=== PATIENT | male | born 2000 | race Caucasian/White ===

== ENCOUNTER 2019-06-18 23:09 | Observation (INO) | payer BC, OTHER ==
[2019-06-18] MEDS ORDERED: MORPHINE 2 MG/ML SYR ONE (23:45)
[2019-06-18] MEDS ORDERED: ONDANSETRON 4 MG/2 ML VIAL ONE (23:45)
[2019-06-18] MEDS ORDERED: NA CHLORIDE 0.9% 1,000 ML ONE (23:45)
[2019-06-18] MEDS ORDERED: ACETAMINOPHEN 500 MG TAB ONE (23:51)
[2019-06-19 00:31] LABS: Absolute Lymphocytes (CBC) 2.5 K/uL (0.7-4.9); Basophils % 0.5 % (0-1.3); Hematocrit 41.1 % (39.6-49.0); Lymphocytes % 12.6 % (15.3-44.8); MPV 9.2 fL (7.6-11.3); RBC Red Blood Cell Count 4.96 M/uL (4.33-5.43)
[2019-06-19 00:35] LABS: ALT/SGPT 35 U/L (12-78); AST/SGOT 16 U/L (15-37); Albumin 3.9 g/dL (3.4-5.0); Alkaline Phosphatase 113 U/L (45-117); BUN Blood Urea Nitrogen 11 mg/dL (7-18); Bicarbonate 29 mmol/L (21-32); Bilirubin Direct < 0.1 mg/dL (0-0.2); Bilirubin Total 0.3 mg/dL (0.2-1.0); Glucose Level 103 mg/dL (74-106); Lipase 73 U/L (73-393); Potassium 4.2 mmol/L (3.5-5.1); Protein, Total 7.2 g/dL (6.4-8.2); Sodium Level 141 mmol/L (136-145)
[2019-06-19] MEDS ORDERED: MORPHINE 2 MG/ML SYR ONE (01:35)
[2019-06-19] MEDS ORDERED: PIPER/TAZO/NS 3.375gm 3.375 GM/100 ML BAG ONE ×2 (02:14→06:51)
--- NOTE | 2019-06-19 02:14 | EDPHYS ---
Physician Documentation [facility] Name: Terry Way Age: 18 yrs Sex: Male : 2000 Arrival Date: 06/18/2019 Time: 23:12 Bed 6 Private MD: ED Physician Hammad Key HPI: 06/19 00:26 This 18 yrs old Male presents to ER via Ambulatory with complaints of kb Abdominal Pain. 00:26 The patient presents with abdominal pain right lower quadrant. Onset: The kb symptoms/episode began/occurred today, at 18:00. The symptoms do not radiate. Associated signs and symptoms: Pertinent positives: fever. The symptoms are described as constant. Modifying factors: The symptoms are alleviated by nothing, the symptoms are aggravated by pressure. Severity of pain: At its worst the pain was moderate severe in the emergency department the pain is unchanged. The patient has not experienced similar symptoms in the past. The patient has not recently seen a physician. Historical: - Allergies: 06/18 23:23 Codeine; mg2 - Home Meds: 23:23 None [Active]; mg2 - PMHx: 23:23 None; mg2 - PSHx: 23:23 Tonsillectomy; wrist sx; mg2 - Immunization history:: Flu vaccine is not up to date. - Social history:: Smoking status: Patient uses tobacco products, smokes one-half pack cigarettes per day, Patient/guardian denies using alcohol, street drugs, IV drugs. - Ebola Screening: : No symptoms or risks identified at this time. ROS: 06/19 00:25 ENT: Negative for injury, pain, and discharge, Neck: Negative for injury, pain, and kb swelling, Cardiovascular: Negative for chest pain, palpitations, and edema, Respiratory: Negative for shortness of breath, cough, wheezing, and pleuritic chest pain, Back: Negative for injury and pain, : Negative for injury, bleeding, discharge, and swelling, MS/Extremity: Negative for injury and deformity, Skin: Negative for injury, rash, and discoloration, Neuro: Negative for headache, weakness, numbness, tingling, and seizure. Constitutional: Positive for fever. Abdomen/GI: Positive for abdominal pain, Negative for nausea, vomiting, and diarrhea. Exam: 00:25 Constitutional: This is a well developed, well nourished patient who is awake, alert, kb and in no acute distress. Head/Face: Normocephalic, atraumatic. ENT: Nares patent. No nasal discharge, no septal abnormalities noted. Tympanic membranes are normal and external auditory canals are clear. Oropharynx with no redness, swelling, or masses, exudates, or evidence of obstruction, uvula midline. Mucous membranes moist. Neck: Trachea midline, no thyromegaly or masses palpated, and no cervical lymphadenopathy. Supple, full range of motion without nuchal rigidity, or vertebral point tenderness. No Meningismus. Chest/axilla: Normal chest wall appearance and motion. Nontender with no deformity. No lesions are appreciated. Cardiovascular: Regular rate and rhythm with a normal S1 and S2. No gallops, murmurs, or rubs. Normal PMI, no JVD. No pulse deficits. Respiratory: Lungs have equal breath sounds bilaterally, clear to auscultation and percussion. No rales, rhonchi or wheezes noted. No increased work of breathing, no retractions or nasal flaring. Back: No spinal tenderness. No costovertebral tenderness. Full range of motion. Skin: Warm, dry with normal turgor. Normal color with no rashes, no lesions, and no evidence of cellulitis. MS/ Extremity: Pulses equal, no cyanosis. Neurovascular intact. Full, normal range of motion. Neuro: Awake and alert, GCS 15, oriented to person, place, time, and situation. Cranial nerves II-XII grossly intact. Motor strength 5/5 in all extremities. Sensory grossly intact. Cerebellar exam normal. Normal gait. 00:25 Abdomen/GI: Inspection: abdomen appears normal, Bowel sounds: normal, in all quadrants, Palpation: soft, in all quadrants, severe abdominal tenderness, in the right lower quadrant. Vital Signs: 06/18 23:22 BP 137 / 82; Pulse 104; Resp 18; Temp 100(O); Pulse Ox 97% on R/A; Weight 90.72 kg; mg2 Height 5 ft. 10 in. (177.80 cm); Pain 01/06; 23:57 BP 114 / 64; Pulse 100; Resp 18; Pulse Ox 100% on R/A; lp1 06/19 01:27 BP 114 / 61; Pulse 97; Resp 18; Temp 99.1(O); Pulse Ox 100% on R/A; lp1 06/18 23:22 Body Mass Index 28.70 (90.72 kg, 177.80 cm) mg2 MDM: 06/18 23:24 Patient medically screened. kb 06/19 00:25 Data reviewed: vital signs, nurses notes. Data interpreted: Pulse oximetry: on room air kb is 100 %. Interpretation: normal. 02:11 Counseling: I had a detailed discussion with the patient and/or guardian regarding: the kb historical points, exam findings, and any diagnostic results supporting the discharge/admit diagnosis, lab results, radiology results, the need for further work-up and treatment in the hospital. Physician consultation: Frank Rodrigues MD was contacted at 02:00, regarding admission, to the medical/surgical unit. patient's condition, and will see patient in inpatient room. 06/18 23:23 Order name: CBC with Diff kb 06/18 23:23 Order name: Basic Metabolic Panel kb 06/18 23:23 Order name: Hepatic Function kb 06/18 23:23 Order name: Lipase kb 06/19 00:25 Order name: Basic Metabolic Panel; Complete Time: 00:35 EDMS 06/19 00:25 Order name: Liver (Hepatic) Function; Complete Time: 00:35 EDMS 06/18 23:30 Order name: CT Abd/Pelvis - IV Contrast Only kb 06/19 00:25 Order name: Lipase; Complete Time: 00:35 EDMS 06/19 00:25 Order name: CBC with Automated Diff; Complete Time: 00:33 EDMS 06/19 00:25 Order name: Abdomen EDMS 06/18 23:23 Order name: IV Saline Lock; Complete Time: 23:52 kb 06/18 23:23 Order name: Labs collected and sent; Complete Time: 23:52 kb Administered Medications: 06/18 23:52 Drug: NS 0.9% 1000 ml Route: IV; Rate: 1000 ml; Site: right antecubital; mg2 06/19 00:45 Follow up: IV Status: Completed infusion; IV Intake: 1000ml lp1 06/18 23:52 Drug: Zofran 4 mg Route: IVP; Site: right antecubital; mg2 06/19 01:26 Follow up: Response: No adverse reaction lp1 06/18 23:52 Drug: morphine 2 mg Route: IVP; Site: right antecubital; mg2 06/19 01:27 Follow up: Response: Pain is decreased lp1 06/18 23:55 Drug: Tylenol 1000 mg Route: PO; lp1 06/19 01:29 Follow up: Response: Temperature is decreased lp1 01:35 Drug: morphine 2 mg Route: IVP; Site: right antecubital; jd3 02:28 Follow up: Response: Pain is decreased lp1 02:28 Drug: Zosyn 3.375 grams Route: IVPB; Infused Over: 60 mins; Site: right antecubital; lp1 02:28 Follow up: IV Status: Infusion continued upon admission lp1 Disposition: 15:19 Co-signature as Attending Physician, Hammad Key MD I agree with the assessment and jai plan of care. Disposition: 06/19/19 02:11 Hospitalization ordered by Frank Rodrigues for Observation. Preliminary diagnosis is Acute appendicitis. - Bed requested for Telemetry/MedSurg (observation). - Status is Observation. lp1 - Condition is Stable. - Problem is new. - Symptoms are unchanged. UTI on Admission? No Signatures: Dispatcher [employer] EDMS Kassie Esquivel, SAFETY INVESTIGATOR-C SAFETY INVESTIGATOR-Ckb Hammad Key MD MD cha Pena, Laura RN RN lp1 Shaquille Clayton RN RN jIvan Haley mw2 Schuyler Louise, RN RN mg2 Corrections: (The following items were deleted from the chart) 02:15 02:11 Hospitalization Ordered by Frank Rodrigues MD for Observation. Preliminary mw2 diagnosis is Acute appendicitis. Bed requested for Telemetry/MedSurg (observation). Status is Observation. Condition is Stable. Problem is new. Symptoms are unchanged. UTI on Admission? No. kb 03:23 02:15 06/19/2019 02:11 Hospitalization Ordered by Frank Rodrigues MD for Observation. lp1 Preliminary diagnosis is Acute appendicitis. Bed requested for Telemetry/MedSurg (observation). Status is Observation. Condition is Stable. Problem is new. Symptoms are unchanged. UTI on Admission? No. mw2
--- NOTE | 2019-06-19 02:14 | ER ---
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 Transition of care: patient was not received from another setting of care. Onset of symptoms was June 18, 2019. Risk Assessment: Do you want to hurt yourself or someone else? Patient reports no desire to harm self or others. Initial Sepsis Screen: Does the patient meet any 2 criteria? No. Patient's initial sepsis screen is negative. Does the patient have a suspected source of infection? No. Patient's initial sepsis screen is negative. Care prior to arrival: None. 23:21 Method Of Arrival: Ambulatory mg2 23:21 Acuity: INOCENTE 3 mg2 Historical: - Allergies: 23:23 Codeine; mg2 - Home Meds: 23:23 None [Active]; mg2 - PMHx: 23:23 None; mg2 - PSHx: 23:23 Tonsillectomy; wrist sx; mg2 - Immunization history:: Flu vaccine is not up to date. - Social history:: Smoking status: Patient uses tobacco products, smokes one-half pack cigarettes per day, Patient/guardian denies using alcohol, street drugs, IV drugs. - Ebola Screening: : No symptoms or risks identified at this time. Screenin:57 Abuse screen: Denies threats or abuse. Denies injuries from another. Nutritional lp1 screening: No deficits noted. Tuberculosis screening: No symptoms or risk factors identified. Fall Risk None identified. 23:57 Abuse screen: Denies threats or abuse. Denies injuries from another. Nutritional mg2 screening: No deficits noted. Tuberculosis screening: No symptoms or risk factors identified. Fall Risk IV access (20 points). Assessment: 23:56 General: Appears in no apparent distress. Behavior is appropriate for age. Pain: lp1 Complains of pain in abdomen Pain currently is 8 out of 10 on a pain scale. Quality of pain is described as sharp, stabbing. Neuro: Level of Consciousness is awake, alert, obeys commands, Oriented to person, place, time, situation. Cardiovascular: Patient's skin is warm and dry. Respiratory: Respiratory effort is even, unlabored. GI: Abdomen is non-distended, Bowel sounds present X 4 quads. Abdomen is tender to palpation in right lower quadrant Reports lower abdominal pain, nausea, vomiting. : No signs and/or symptoms were reported regarding the genitourinary system. EENT: No signs and/or symptoms were reported regarding the EENT system. Derm: Skin is pink, warm \T\ dry. Musculoskeletal: No deficits noted. 06/19 01:09 Reassessment: Patient returned from CT. lp1 01:28 Reassessment: Patient states abdominal pain returning at this time. lp1 Vital Signs: 06/18 23:22 BP 137 / 82; Pulse 104; Resp 18; Temp 100(O); Pulse Ox 97% on R/A; Weight 90.72 kg; mg2 Height 5 ft. 10 in. (177.80 cm); Pain 7/10; 23:57 BP 114 / 64; Pulse 100; Resp 18; Pulse Ox 100% on R/A; lp1 06/19 01:27 BP 114 / 61; Pulse 97; Resp 18; Temp 99.1(O); Pulse Ox 100% on R/A; lp1 06/18 23:22 Body Mass Index 28.70 (90.72 kg, 177.80 cm) mg2 ED Course: 06/18 23:12 Patient arrived in ED. cf2 23:18 Kassie Esquivel FNP-C is [facility]. kb 23:18 Hammad Key MD is Attending Physician. kb 23:22 Triage completed. mg2 23:24 Arm band placed on. mg2 23:45 Inserted saline lock: 20 gauge in right antecubital area, using aseptic technique. mg2 Blood collected. 23:55 Naye Petit, CHRIS is Primary Nurse. lp1 23:57 Patient has correct armband on for positive identification. mg2 23:57 No provider procedures requiring assistance completed. mg2 06/19 01:34 Abdomen In Process Unspecified. EDMS 02:11 Frank Rodrigues MD is Hospitalizing Provider. kb 02:28 Patient admitted, IV remains in place. lp1 Administered Medications: 06/18 23:52 Drug: NS 0.9% 1000 ml Route: IV; Rate: 1000 ml; Site: right antecubital; [facility] 06/19 00:45 Follow up: IV Status: Completed infusion; IV Intake: 1000ml lp1 06/18 23:52 Drug: Zofran 4 mg Route: IVP; Site: right antecubital; mg2 06/19 01:26 Follow up: Response: No adverse reaction lp1 06/18 23:52 Drug: morphine 2 mg Route: IVP; Site: right antecubital; mg2 06/19 01:27 Follow up: Response: Pain is decreased lp1 06/18 23:55 Drug: Tylenol 1000 mg Route: PO; lp1 06/19 01:29 Follow up: Response: Temperature is decreased lp1 01:35 Drug: morphine 2 mg Route: IVP; Site: right antecubital; jd3 02:28 Follow up: Response: Pain is decreased lp1 02:28 Drug: Zosyn 3.375 grams Route: IVPB; Infused Over: 60 mins; Site: right antecubital; lp1 02:28 Follow up: IV Status: Infusion continued upon admission lp1 Intake: 00:45 IV: 1000ml; Total: 1000ml. lp1 Outcome: 02:11 Decision to Hospitalize by Provider. kb 02:28 Condition: stable lp1 02:28 Instructed on the need for admit. 02:50 Admitted to Med/surg accompanied by tech, via wheelchair, room 211, with chart, Report lp1 called to CHRIS Collazo 03:23 Patient left the ED. lp1 Signatures: Dispatcher [employer] EDMS Kassie Esquivel, ILIA-Juarez MORILLO-Naye Ellison RN RN lp1 Shaquille Clayton RN RN jd3 Gardose, Michele, RN RN mg2 [place] 2
[2019-06-19] MEDS ORDERED: ACETAMINOPHEN 500 MG TAB PO PRN (03:43)
[2019-06-19] MEDS ORDERED: ONDANSETRON 4 MG/2 ML VIAL IV PRN (03:43)
[2019-06-19] MEDS: NA CHLORIDE 0.9% 1,000 ML IV SCH ×4 (04:25→19:43)
[2019-06-19] MEDS: MORPHINE 4 MG/ML SYR IV PRN ×2 (04:26→09:02)
[2019-06-19 04:54] VITALS: BMI 29.2
[2019-06-19] MEDS: PIPER/TAZO/NS 3.375gm 3.375 GM/100 ML BAG IVPB SCH ×4 (07:16→23:11)
[2019-06-19] MEDS ORDERED: propofoL 200 MG/20 ML VIAL IV ONE (12:29)
[2019-06-19] MEDS ORDERED: ROCURONIUM 50 MG/5 ML VIAL IV ONE (12:30)
[2019-06-19] MEDS ORDERED: LIDOCAINE 2% MPF 5 ML VIAL ONE (12:30)
[2019-06-19] MEDS ORDERED: FENTANYL CITR 100 MCG/2 ML ONE (12:30)
--- NOTE | 2019-06-19 12:35 | P.HP ---
Date of Service: 06/19/19 PC: Dysphagia lipases emergency room with severe right lower quadrant abdominal pain for diagnosis and treatment. HPC: History 6, the patient ate some food. Afterwards did not feel well. Has some periumbilical pain which is finally localized to the right side. He was brought to the emergency room for evaluation and treatment. PMH: Negative PSHx: Prior surgery SOC: Allergic to codeine SYS REVIEW: No cough, wheezing, shortness of breath. No chest pain or palpitations. Denies any urinary complaints otherwise a healthy young man O/E awake alert about signs are stable HEENT: Not jaundiced Chest: Chest movement was equal bilaterally ABD: Tender with guarding in the right lower quadrant LOCO: Intact DATA: Elevated white cell count, CT scan supports clinical suspicion of acute abdomen with appendicitis IMPRESSION: Acute appendicitis PLAN: I was in the operating room for laparoscopic possible open appendectomy. The risks of this procedure have been discussed. The possibility of bleeding , infection, injury to bowel and blood vessels had been describes. The possible need for an open enter further surgeries and procedures was discussed. He understands and wants to proceed.
[2019-06-19] MEDS: Ringers Lactate 1,000 ML IV ONE (12:41)
[2019-06-19] MEDS ORDERED: KETOROLAC 30 MG/ML INJ ONE (13:11)
[2019-06-19] MEDS ORDERED: dexAMETHasone 10 MG/ML VIAL ONE (13:11)
[2019-06-19] MEDS ORDERED: ONDANSETRON 4 MG/2 ML VIAL ONE (13:12)
[2019-06-19] MEDS ORDERED: EPHEDRINE SULF 50 MG/ML VIAL ONE (13:26)
[2019-06-19] MEDS ORDERED: GLYCOPYRROLATE 0.2 MG/ML SYR ONE ×2 (13:28→13:39)
[2019-06-19] MEDS ORDERED: NEOSTIGMINE 1 MG/ML -10 ML VIAL ONE (13:40)
--- NOTE | 2019-06-19 13:45 | P.OP ---
Preoperative diagnosis: Acute abdomen with appendicitis Postoperative diagnosis: The same Primary procedure: Laparoscopic appendectomy Anesthesia: General Estimated blood loss: Less than 10 cc Specimen: 1 appendix Operative Technique: The patient was brought to the operating room, placed supine on the table. After the induction of adequate general endotracheal anesthesia, the area of the abdomen was prepped with a DuraPrep solution, and she was draped in the usual aseptic manner. A subumbilical incision was made. This was brought down through the skin and subcutaneous tissue. The Visiport was cavity and created pneumoperitoneum to approximately 12 mm of mercury. Under direct vision a 5 mm trocar was placed in the lower midline and another 5 mm in the right upper quadrant. The patient was then positioned in Trendelenburg and rolled to the left side. We were able to visualize right lower quadrant. . The appendix was then gently dissected from the surrounding structures. The junction of the appendix with the with the cecum was identified. An opening was made in the mesentery of the appendix. The 10 mm trocar was now converted to a 12 with the camera moved to the right upper port with a 5 mm view. The linear Stapler was introduced into the peritoneal cavity. It was placed across the base of the appendix and fired. A vascular reload was then placed into the Stapler. The mesentery of the appendix was then taken down. The appendix having been was placed into an Endo-Catch, brought out through the umbilical port site. Attention was turned back towards the right lower quadrant. The area was gently irrigated with the saline solution. The effluent was aspirated. 0.25% Marcaine was aerosolize into the right lower quadrant. Attention was turned towards the umbilical trocar. Using the endo-close absorbable sutures were placed to close the defect. The patient was now returned to the neutral position on the OR table. The pneumoperitoneum was collapsed, the umbilical sutures tied, and miguelangel applied to the skin. At the end of the procedure the patient was in stable condition and sent to the recovery room. Needle sponge and instrument count were correct. 1 specimen was sent for histopathology. Sterile dressings had been applied. Complications: None Transferred to: Recovery Room Condition: Good
[2019-06-19] MEDS: HYDROMORPHONE HCL 2 MG/ML inj ONE ×3 (13:56→14:07)
[2019-06-19] MEDS ORDERED: MORPHINE 4 MG/ML SYR IV PRN (14:05)
[2019-06-19] MEDS: HYDROCODONE/APAP 7.5/325 MG TAB PO PRN ×2 (16:29→22:14)
[2019-06-20] MEDS: NA CHLORIDE 0.9% 1,000 ML IV SCH ×3 (00:31→11:43)
[2019-06-20] MEDS: HYDROCODONE/APAP 7.5/325 MG TAB PO PRN ×2 (04:46→11:15)
[2019-06-20] MEDS: PIPER/TAZO/NS 3.375gm 3.375 GM/100 ML BAG IVPB SCH ×2 (05:02→11:50)
[2019-06-20 08:25] VITALS: BP 103/60; TEMP 97.4
[2019-06-20 11:05] VITALS: O2SAT 96
--- NOTE | 2019-06-21 11:23 | RAD REPORT ---
EXAM DESCRIPTION: CT - Abdomen Pelvis W Contrast - 06/19/2019 2:03 am COMPARISON: None CLINICAL HISTORY: Abdominal pain TECHNIQUE: Multiple helical axial images were obtained through the abdomen and pelvis using intraven ous contrast. Coronal and sagittal reformatted images were obtained. All CT scans at this facility use dose modulation, iterative reconstruction, and/or weight-based dosi ng when appropriate to reduce radiation dose to as low as reasonably achievable. FINDINGS: Lung bases: Appear unremarkable. Liver: Homogenous attenuation is noted. Gallbladder/biliary: Appears unremarkable Pancreas: Unremarkable. No evidence of ductal enlargement. Spleen: Appears unremarkable. No splenomegaly. Adrenals: Unremarkable. Kidneys and ureters: No evidence of hydronephrosis. Normal enhancement. Subcentimeter hypodensity i n the midpole of the right kidney is present too small to characterize. Bladder: Unremarkable. Pelvic organs: Unremarkable. Bowel: Appendix is enlarged measuring up to 9 mm in width and demonstrates mildly increased mucosal e nhancement with mild adjacent stranding concerning for acute appendicitis. No evidence of bowel obstr uction. No bowel wall thickening. Vasculature: Unremarkable. Peritoneum: No free air. No significant free fluid. Lymph nodes: Unremarkable. Soft tissues: Unremarkable. Bones: Unremarkable. IMPRESSION: Findings concerning for acute appendicitis. THIS REPORT CONTAINS FINDINGS THAT MAY BE CRITICAL TO PATIENT CARE: The findings were verbally discu ssed via telephone conference with Dr. Key by Dr. Loera at 0143 hours central time on June 19, 2019. The results were acknowledged and understood. Electronically signed by: Casey Loera MD 06/19/2019 1:44 AM AUTOMOTIVE TIRE WORKER Due to temporary technical issues with the PACS/Fluency reporting system, reports are being signed by the in house radiologist as a courtesy to ensure prompt reporting. The interpreting radiologist is f ully responsible for the content of the report.
== END 2019-06-20 12:12 | disposition home health service (06) ==
LOC: ER 23:09 → ERHOLD 06-19 02:16 → 2ND 06-19 02:47
PROVIDERS: ADMIT Surgery; ATTEND Surgery
PROC: 0DTJ4ZZ Resection of Appendix, Percutaneous Endoscopic Approach (ICD-10-PCS; principal; 2019-06-19 13:00)
DX: K35.80 Unspecified acute appendicitis (principal)
CPT/HCPCS: 96361; 85025; 80048; 36415; 80076; 88304; 83690; 74177; 96375; 96374; 99285; 44970; Q9967; J2704; J2710; J1170; J3010; J2543 ×2; J1100; J2270 ×2; G0378 ×4; J7120; J7030 ×4; J2405 ×2

== ENCOUNTER 2020-05-09 11:41 | Emergency (ER) | payer BC ==
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
[2020-05-09] MEDS ORDERED: ACETAMINOPHEN 325 MG TABLET ONE (12:49)
[2020-05-09] MEDS ORDERED: HYDROCODONE/APAP 5/325 MG TAB ONE (12:49)
--- NOTE | 2020-05-09 15:37 | ER ---
Nurse's Notes [facility] Name: Terry Way Age: 19 yrs Sex: Male : 2000 Arrival Date: 05/09/2020 Time: 11:43 Bed 7 Private MD: Diagnosis: Acute bronchitis Presentation: 05/09 12:25 Chief complaint: Patient states: Fever yesterday. Woke up with fever at 103F today. ca1 Feeling tired, sore everywhere like I've been hit by a train. Reports cough, congestion, sore throat, headache. 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 Coronavirus screen: Client denies travel out of the [place] in the last 14 days. cough unrelated to allergies, fatigue, fever, headache, muscle pain, sore throat, Client presents with at least one sign or symptom that may indicate coronavirus-19. Standard/surgical mask placed on the client. Provider contacted for isolation considerations. The client reports previous COVID testing was negative. Date of collection: September 2019. Ebola Screen: Patient negative for fever greater than or equal to 101.5 degrees Fahrenheit, and additional compatible Ebola Virus Disease symptoms Patient denies exposure to infectious person. Patient denies travel to an Ebola-affected area in the 21 days before illness onset. No symptoms or risks identified at this time. Initial Sepsis Screen: Does the patient meet any 2 criteria? No. Patient's initial sepsis screen is negative. Does the patient have a suspected source of infection? No. Patient's initial sepsis screen is negative. Risk Assessment: Do you want to hurt yourself or someone else? Patient reports no desire to harm self or others. Onset of symptoms was May 09, 2020. 12:25 Method Of Arrival: Ambulatory ca1 12:25 Acuity: INOCENTE 3 ca1 Historical: - Allergies: 12:29 Codeine; ca1 - Home Meds: 12:29 None [Active]; ca1 - PMHx: 12:29 None; ca1 - PSHx: 12:29 Tonsillectomy; wrist sx; ca1 12:29 Appendectomy; ca1 - Immunization history:: Adult Immunizations up to date, Flu vaccine is not up to date. - Social history:: Smoking status: Patient/guardian denies using tobacco, but has a distant history of tobacco abuse. Screenin:05 Abuse screen: Denies threats or abuse. Denies injuries from another. Nutritional ph screening: No deficits noted. Tuberculosis screening: No symptoms or risk factors identified. Fall Risk None identified. Assessment: 15:04 General: Appears in no apparent distress. comfortable, Behavior is calm, cooperative, ph appropriate for age, Reports chills for fever for 12-24 hours. Pain: Complains of pain in head, throat, and "all over". Neuro: Level of Consciousness is awake, alert, obeys commands, Oriented to person, place, time, situation, Reports headache. Cardiovascular: Capillary refill < 3 seconds in bilateral fingers Patient's skin is warm and dry. Respiratory: Reports cough that is Airway is patent Respiratory effort is even, unlabored, Respiratory pattern is regular, symmetrical, Denies shortness of breath. GI: No signs and/or symptoms were reported involving the gastrointestinal system. EENT: Reports pain when swallowing. Derm: Skin is intact, is fragile, Skin is pink, warm \\T\\ dry. Vital Signs: 12:25 BP 133 / 68; Pulse 98; Resp 18 S; Temp 99(TE); Pulse Ox 100% on R/A; Weight 90.72 kg ca1 (R); Height 5 ft. 11 in. (180.34 cm) (R); Pain 7/10; 12:31 Temp 100.4(O); ca1 13:38 Temp 100.2(O); ca1 14:30 BP 110 / 52 RA (auto/reg); Pulse 96; Resp 18; Pulse Ox 100% on R/A; jp3 15:30 BP 117 / 56; Pulse 84; Resp 18; Temp 99.2; Pulse Ox 99% on R/A; ph 12:25 Body Mass Index 27.89 (90.72 kg, 180.34 cm) ca1 ED Course: 11:43 Patient arrived in ED. as 11:55 Sw[facility] Bermude[facility]C [facility] snw 11:55 Hammad Key MD is Attending Physician. snw 12:28 Triage completed. ca1 12:29 Arm band placed on right wrist. ca1 12:42 Flu and/or RSV swab sent to lab. Strep swab sent to lab. ca1 15:04 Pat Cerrato RN is Primary Nurse. ph 15:05 Patient has correct armband on for positive identification. Bed in low position. Call ph light in reach. Side rails up X 1. Pulse ox on. NIBP on. Door closed. Noise minimized. 16:08 No provider procedures requiring assistance completed. Patient did not have IV access ph during this emergency room visit. Administered Medications: 12:42 Drug: Arapahoe 5 mg-325 mg 1 tabs {Note: rass 0.} Route: PO; ca1 12:42 Drug: Acetaminophen 325 mg Route: PO; ca1 13:05 CANCELLED (Duplicate Order): [place] 5 mg-325 mg 1 tabs PO once; RASS on ADMIN: Combtv4, ca1 Very Agttd3, Agttd2, Rstlss1, AlertClm0, Drwsy-1, Lt Sdtn-2, Mod Sdtn-3, Dp Sdtn-4, UnArsble-5 13:06 CANCELLED (Duplicate Order): Tylenol 325 mg PO once ca1 16:07 Drug: Zithromax 500 mg Route: PO; ph 16:08 Drug: ZyrTEC - Cetirizine 10 mg Route: PO; ph 16:08 Drug: Pepcid 20 mg Route: PO; ph 16:08 Drug: predniSONE 40 mg Route: PO; ph Outcome: 15:36 Discharge ordered by MD. snw 16:08 Patient left the ED. ph 16:08 Discharged to home ambulatory, with family. ph 16:08 Condition: good 16:08 Discharge instructions given to patient, Instructed on discharge instructions, follow up and referral plans. medication usage, Demonstrated understanding of instructions, follow-up care, medications, Prescriptions given X 5 Addendum: 05/11/2020 20:10 Addendum: COVID-19 Result: Positive result giiven to ED physician to notify pt. b b Physician: Hammad Key MD Physician was able to contact pt and pt was notified of positive COVID-19 swab result. Physician answered pt questions. Signatures: Swathi Bermudez, ILIA-C SHOE CEMENTER-Yenny Kim Brenda RN RN bb Pat Cerrato RN RN ph Chau Ayon jp3 Emmie Blanc RN RN ca1 Corrections: (The following items were deleted from the chart) 05/09 12:31 12:25 Chief complaint: Patient states: Fever yesterday. Woke up with fever at 103F ca1 today. Feeling tired, sore everywhere like I've been hit by a train. Reports cough, congestion, sore throat, headache ca1 13:40 13:38 Temp 100.2F Oral; ca1 ca1
--- NOTE | 2020-05-09 15:37 | EDPHYS ---
Physician Documentation [facility] Name: Terry Way Age: 19 yrs Sex: Male : 2000 Arrival Date: 05/09/2020 Time: 11:43 Bed 7 Private MD: ED Physician Hammad Key HPI: 05/09 16:07 This 19 yrs old Male presents to ER via Ambulatory with complaints of r/o snw covid. 16:07 Onset: The symptoms/episode began/occurred suddenly, 3 day(s) ago. Associated signs and snw symptoms: Pertinent positives: congestion, cough, fever, sore throat, myalgias. The patient has not experienced similar symptoms in the past. The patient has not recently seen a physician. Historical: - Allergies: 12:29 Codeine; ca1 - Home Meds: 12:29 None [Active]; ca1 - PMHx: 12:29 None; ca1 - PSHx: 12:29 Tonsillectomy; wrist sx; ca1 12:29 Appendectomy; ca1 - Immunization history:: Adult Immunizations up to date, Flu vaccine is not up to date. - Social history:: Smoking status: Patient/guardian denies using tobacco, but has a distant history of tobacco abuse. ROS: 16:08 Constitutional: Negative for fever, chills, and weight loss, Eyes: Negative for injury, snw pain, redness, and discharge, ENT: Negative for injury, pain, and discharge, Neck: Negative for injury, pain, and swelling, Cardiovascular: Negative for palpitations and edema, + chest pain with cough Respiratory: Positive for shortness of breath, cough, and pleuritic chest pain, negative for wheezing Abdomen/GI: Negative for abdominal pain, nausea, vomiting, diarrhea, and constipation, Back: Negative for injury and pain, : Negative for injury, bleeding, discharge, and swelling, MS/Extremity: Negative for injury and deformity, Skin: Negative for injury, rash, and discoloration, Neuro: Negative for headache, weakness, numbness, tingling, and seizure. Exam: 14:00 Constitutional: The patient appears alert, awake, febrile. snw 14:00 Head/Face: Normocephalic, atraumatic. Eyes: Pupils equal round and reactive to light, snw extra-ocular motions intact. Lids and lashes normal. Conjunctiva and sclera are non-icteric and not injected. Cornea within normal limits. Periorbital areas with no swelling, redness, or edema. ENT: Nares patent. No nasal discharge, no septal abnormalities noted. Tympanic membranes are normal and external auditory canals are clear. Oropharynx with no redness, swelling, or masses, exudates, or evidence of obstruction, uvula midline. Mucous membranes moist. Neck: Trachea midline, no thyromegaly or masses palpated, and no cervical lymphadenopathy. Supple, full range of motion without nuchal rigidity, or vertebral point tenderness. No Meningismus. Chest/axilla: Normal chest wall appearance and motion. Nontender with no deformity. No lesions are appreciated. Cardiovascular: Regular rate and rhythm with a normal S1 and S2. No gallops, murmurs, or rubs. Normal PMI, no JVD. No pulse deficits. Respiratory: Lungs have equal breath sounds bilaterally, clear to auscultation and percussion. No rales, rhonchi or wheezes noted. No increased work of breathing, no retractions or nasal flaring. Abdomen/GI: Soft, non-tender, with normal bowel sounds. No distension or tympany. No guarding or rebound. No evidence of tenderness throughout. Back: No spinal tenderness. No costovertebral tenderness. Full range of motion. Skin: Warm, dry with normal turgor. Normal color with no rashes, no lesions, and no evidence of cellulitis. MS/ Extremity: Pulses equal, no cyanosis. Neurovascular intact. Full, normal range of motion. Neuro: Awake and alert, GCS 15, oriented to person, place, time, and situation. Cranial nerves II-XII grossly intact. Motor strength 5/5 in all extremities. Sensory grossly intact. Cerebellar exam normal. Normal gait. Psych: Awake, alert, with orientation to person, place and time. Behavior, mood, and affect are within normal limits. Vital Signs: 12:25 BP 133 / 68; Pulse 98; Resp 18 S; Temp 99(TE); Pulse Ox 100% on R/A; Weight 90.72 kg ca1 (R); Height 5 ft. 11 in. (180.34 cm) (R); Pain 7/10; 12:31 Temp 100.4(O); ca1 13:38 Temp 100.2(O); ca1 14:30 BP 110 / 52 RA (auto/reg); Pulse 96; Resp 18; Pulse Ox 100% on R/A; jp3 15:30 BP 117 / 56; Pulse 84; Resp 18; Temp 99.2; Pulse Ox 99% on R/A; ph 12:25 Body Mass Index 27.89 (90.72 kg, 180.34 cm) ca1 MDM: 14:18 Patient medically screened. jai 16:06 Data reviewed: vital signs, nurses notes. Data interpreted: Pulse oximetry: on room air snw is 100 %. Interpretation: normal. Counseling: I had a detailed discussion with the patient and/or guardian regarding: the historical points, exam findings, and any diagnostic results supporting the discharge/admit diagnosis, lab results, the need for outpatient follow up, to return to the emergency department if symptoms worsen or persist or if there are any questions or concerns that arise at home. Response to treatment: the patient's symptoms have markedly improved after treatment. Special discussion: Based on the history and exam findings, there is no indication for further emergent testing or inpatient evaluation. I discussed with the patient/guardian the need to see the primary care provider for further evaluation of the symptoms. 05/09 12:42 Order name: Flu; Complete Time: 15:01 ca1 05/09 12:42 Order name: Strep; Complete Time: 13:30 ca1 05/09 12:42 Order name: COVID-19; Complete Time: 15:01 ca1 05/09 13:15 Order name: Throat Culture EDMS Administered Medications: 12:42 Drug: Volcano 5 mg-325 mg 1 tabs {Note: rass 0.} Route: PO; ca1 12:42 Drug: Acetaminophen 325 mg Route: PO; ca1 13:05 CANCELLED (Duplicate Order): [place]cano 5 mg-325 mg 1 tabs PO once; RASS on ADMIN: Combtv4, ca1 Very Agttd3, Agttd2, Rstlss1, AlertClm0, Drwsy-1, Lt Sdtn-2, Mod Sdtn-3, Dp Sdtn-4, UnArsble-5 13:06 CANCELLED (Duplicate Order): Tylenol 325 mg PO once ca1 16:07 Drug: Zithromax 500 mg Route: PO; ph 16:08 Drug: ZyrTEC - Cetirizine 10 mg Route: PO; ph 16:08 Drug: Pepcid 20 mg Route: PO; ph 16:08 Drug: predniSONE 40 mg Route: PO; ph Disposition: 05/10 07:01 Co-signature as Attending Physician, Hammad Key MD I agree with the assessment and [facility] plan of care. Disposition: 05/09/20 15:36 Discharged to Home. Impression: Acute bronchitis. - Condition is Stable. - Discharge Instructions: Acute Bronchitis, Adult, Cough, Adult, Rehydration, Adult. - Prescriptions for Zyrtec 10 mg Oral Tablet - take 1 tablet by ORAL route once daily As needed; 20 tablet. Prednisone 20 mg Oral Tablet - take 2 tablet by ORAL route once daily for 5 days; 10 tablet. Albuterol Sulfate 90 mcg/actuation - inhale 1-2 puff by INHALATION route every 4-6 hours; 1 Inhaler. Pepcid 20 mg Oral Tablet - take 1 tablet by ORAL route once daily for 10 days; 10 tablet. Zithromax 500 mg Oral Tablet - take 1 tablet by ORAL route once daily for 5 days; 5 tablet. - Medication Reconciliation Form, Thank You Letter, Antibiotic Education, Prescription Opioid Use form. - Follow up: Emergency Department; When: As needed; Reason: Worsening of condition. Follow up: Private Physician; When: 2 - 3 days; Reason: Recheck today's complaints, Continuance of care, Re-evaluation by your physician. Signatures: Dispatcher [employer] Hammad Wagner MD MD cha Waters, Shelly, TRAFFIC CONTROL FLAGGER-C TRAFFIC CONTROL FLAGGER-Yannw Pat Cerrato RN RN ph Emmie Blanc RN RN ca1 Corrections: (The following items were deleted from the chart) 05/09 13:05 12:44 Volcano 5 mg-325 mg 1 tabs PO once; RASS on ADMIN: Combtv4, Very Agttd3, Agttd2, ca1 Rstlss1, AlertClm0, Drwsy-1, Lt Sdtn-2, Mod Sdtn-3, Dp Sdtn-4, UnArsble-5 ordered. snw 13:06 12:44 Tylenol 325 mg PO once ordered. snw ca1 13:35 12:44 CORONAVIRUS+MR.LAB.BRZ ordered. EDMS EDMS 16:08 15:36 05/09/2020 15:36 Discharged to Home. Impression: Acute bronchitis. Condition is ph Stable. Forms are Medication Reconciliation Form, Thank You Letter, Antibiotic Education, Prescription Opioid Use. Follow up: Emergency Department; When: As needed; Reason: Worsening of condition. Follow up: Private Physician; When: 2 - 3 days; Reason: Recheck today's complaints, Continuance of care, Re-evaluation by your physician. snw
[2020-05-09] MEDS ORDERED: AZITHROMYCIN 250 MG TAB ONE (16:14)
[2020-05-09] MEDS ORDERED: CETIRIZINE HCL 5 MG TABLET ONE (16:14)
[2020-05-09] MEDS ORDERED: FAMOTIDINE 20 MG TAB ONE (16:14)
[2020-05-09] MEDS ORDERED: predniSONE 20 MG TAB ONE (16:14)
[2020-05-09 16:51] VITALS: O2SAT 100
[2020-05-09 16:54] VITALS: TEMP 100.2
[2020-05-09 16:55] VITALS: BP 110/52
== END 2020-05-09 16:08 | disposition home or self-care (01) ==
LOC: ER 11:41
DX: U07.1 COVID-19 (principal); J20.9 Acute bronchitis, unspecified; Z88.5 Allergy status to narcotic agent
CPT/HCPCS: 87070; 87081; 87804 ×2; 99284; U0002; J7512

== ENCOUNTER 2020-11-14 08:31 | Emergency (ER) | payer BC ==
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
[2020-11-14] MEDS ORDERED: FLUORESCEIN SODIUM 1 MG/WRAP ONE (08:59)
[2020-11-14] MEDS ORDERED: TETRACAINE HCL 0.5% 4ML OPTH ONE (08:59)
--- NOTE | 2020-11-14 09:27 | ER ---
Nurse's Notes [facility] Name: Terry Way Age: 20 yrs Sex: Male : 2000 Arrival Date: 11/14/2020 Time: 08:32 Bed 13 Private MD: Diagnosis: Injury of conjunctiva and corneal abrasion without foreign body, right eye Presentation: 11/14 08:40 Chief complaint: Patient states: May have gotten wood in R eye yesterday, flushed it jl7 with water several times but reports sensitivity to light, pain, and it still feels like something is in there. Coronavirus screen: Client denies travel out of the [place] in the last 14 days. At this time, the client does not indicate any symptoms associated with coronavirus-19. Ebola Screen: No symptoms or risks identified at this time. Mechanism of Injury: No Mechanism of Injury. The patient denies any loss of vision. Initial Sepsis Screen: Does the patient meet any 2 criteria? No. Patient's initial sepsis screen is negative. Does the patient have a suspected source of infection? No. Patient's initial sepsis screen is negative. Risk Assessment: Do you want to hurt yourself or someone else? Patient reports no desire to harm self or others. Onset of symptoms was November 13, 2020. Care prior to arrival: None. 08:40 Method Of Arrival: Ambulatory 7 08:40 Acuity: INOCENTE 4 jl7 Triage Assessment: 08:43 General: Appears in no apparent distress. uncomfortable, Behavior is calm, cooperative, jl7 appropriate for age. Pain: Complains of pain in right eye Pain currently is 6 out of 10 on a pain scale. EENT: Eyes are tearing on right eye Sclera/Cornea are reddened in right eye. Neuro: Level of Consciousness is awake, alert, obeys commands, Oriented to person, place, time, situation. Cardiovascular: Patient's skin is warm and dry. Respiratory: Airway is patent Respiratory effort is even, unlabored, Respiratory pattern is regular, symmetrical. Derm: Skin is pink, warm \T\ dry. Historical: - Allergies: 08:43 Codeine; jl7 - Home Meds: 08:43 None [Active]; jl7 - PMHx: 08:43 None; jl7 - PSHx: 08:43 Tonsillectomy; Appendectomy; wrist sx; jl7 - Immunization history:: Adult Immunizations unknown. - Social history:: Smoking status: Patient reports the use of cigarette tobacco products, smokes one-half pack cigarettes per day. - Family history:: not pertinent. - Hospitalizations: : No recent hospitalization is reported. Screenin:44 Abuse screen: Denies threats or abuse. Denies injuries from another. Nutritional jl7 screening: No deficits noted. Tuberculosis screening: No symptoms or risk factors identified. Fall Risk None identified. Assessment: 08:44 General: See triage assessment. jl7 Vital Signs: 08:40 BP 144 / 87; Pulse 83; Resp 17 S; Temp 98.4(O); Pulse Ox 100% on R/A; Weight 99.79 kg jl7 (R); Height 5 ft. 11 in. (180.34 cm); Pain 6/10; 08:40 Body Mass Index 30.68 (99.79 kg, 180.34 cm) jl7 ED Course: 08:32 Patient arrived in ED. am2 08:40 Tee Wells, RN is Primary Nurse. jl7 08:41 Wallace Quintero MD is Attending Physician. rn 08:42 Triage completed. jl7 08:43 Arm band placed on right wrist. jl7 08:44 Patient has correct armband on for positive identification. Bed in low position. Call jl7 light in reach. Side rails up X 1. 09:00 Assist provider with eye exam of right eye. using fluorescein stain, Performed by Wallace Quintero MD Patient tolerated well. 09:20 Eye irrigation with 40ml flush right eye. [facility] 09:44 No provider procedures requiring assistance completed. Patient did not have IV access jl7 during this emergency room visit. Administered Medications: 09:00 Drug: Tetracaine Drops 0.5 % 1 drops {Note: administered by Dr. Quintero.} Route: jlRose Ophthalmic; Site: right eye; Outcome: 09:26 Discharge ordered by . rn 09:44 Discharged to home ambulatory. jl7 09:44 Condition: stable 09:44 Discharge instructions given to patient, Instructed on discharge instructions, follow up and referral plans. medication usage, Demonstrated understanding of instructions, follow-up care, medications, Prescriptions given X 1. 09:46 Patient left the ED. jl7 Signatures: Wallace Quintero MD MD rn Elzbieta Conway 5 Tee Wells RN RN 7 Cheryl Pierce
--- NOTE | 2020-11-14 09:27 | EDPHYS ---
Physician Documentation [facility] Name: Terry Way Age: 20 yrs Sex: Male : 2000 Arrival Date: 11/14/2020 Time: 08:32 Bed 13 Private MD: ED Physician Wallace Quintero HPI: 11/14 09:20 This 20 yrs old Male presents to ER via Ambulatory with complaints of Foreign rn Body In Eye - wood chips, Eye Pain. 09:20 The patient is experiencing foreign body sensation, The patient sustained a scratch, to rn the right eye, caused by debris. Onset: The symptoms/episode began/occurred yesterday. Duration: the symptoms are intermittent. Aggravated by nothing. Alleviated by nothing. Patient does not utilize any form of vision correction. Severity of symptoms: At their worst the symptoms were mild in the emergency department the symptoms are unchanged. The patient has not experienced similar symptoms in the past. Reports handling wood yesterday, no eye protection, thinks piece of wood shaving got in eye, thinks got it out but has felt like something in his eye since then. + clear drainage, + mild swelling to left eyelids. Rivera snot wear contacts. no direct trauma by wood. . Historical: - Allergies: 08:43 Codeine; jl7 - Home Meds: 08:43 None [Active]; jl7 - PMHx: 08:43 None; jl7 - PSHx: 08:43 Tonsillectomy; Appendectomy; wrist sx; jl7 - Immunization history:: Adult Immunizations unknown. - Social history:: Smoking status: Patient reports the use of cigarette tobacco products, smokes one-half pack cigarettes per day. - Family history:: not pertinent. - Hospitalizations: : No recent hospitalization is reported. ROS: 09:20 Constitutional: Negative for fever, chills, and weight loss, Eyes: + foreign body rn sensation right eye, no vision loss Exam: 09:20 Constitutional: This is a well developed, well nourished patient who is awake, alert, rn and in no acute distress. Head/Face: Normocephalic, atraumatic. Eyes: Pupils equal round and reactive to light, extra-ocular motions intact. Clear drainage right eye, no focal fluorescein uptake noted, martina's sign neg, no foreign body identified, lids everted. Vital Signs: 08:40 BP 144 / 87; Pulse 83; Resp 17 S; Temp 98.4(O); Pulse Ox 100% on R/A; Weight 99.79 kg jl7 (R); Height 5 ft. 11 in. (180.34 cm); Pain 6/10; 08:40 Body Mass Index 30.68 (99.79 kg, 180.34 cm) 7 MDM: 08:41 Patient medically screened. rn 09:20 Differential diagnosis: Corneal abrasion of Foreign body in. Data reviewed: vital rn signs, nurses notes, and as a result, I will discharge patient. Counseling: I had a detailed discussion with the patient and/or guardian regarding: the historical points, exam findings, and any diagnostic results supporting the discharge/admit diagnosis, the need for outpatient follow up, to return to the emergency department if symptoms worsen or persist or if there are any questions or concerns that arise at home. Response to treatment: the patient's symptoms have mildly improved after treatment, and as a result, I will discharge patient. Special discussion: I discussed with the patient/guardian in detail that at this point there is no indication for admission to the hospital. It is understood, however, that if the symptoms persist or worsen the patient needs to return immediately for re-evaluation. 11/14 08:56 Order name: [facility] [place]. Order: irrigate right eye; Complete Time: 09:21 rn 11/14 09:45 Order name: Eye Tray; Complete Time: 09:46 jl7 11/14 09:45 Order name: Fluoresene Opth strip; Complete Time: 09:46 7 Administered Medications: 09:00 Drug: Tetracaine Drops 0.5 % 1 drops {Note: administered by Dr. Quintero.} Route: jl7 Ophthalmic; Site: right eye; Disposition: 11/14/20 09:26 Discharged to Home. Impression: Injury of conjunctiva and corneal abrasion without foreign body, right eye. - Condition is Stable. - Discharge Instructions: Corneal Abrasion. - Prescriptions for Vigamox 0.5 % Ophthalmic Drops - instill 1 drop by OPHTHALMIC route every 8 hours for 7 days; 5 milliliter. - Medication Reconciliation Form, Thank You Letter, Antibiotic Education, Prescription Opioid Use form. - Follow up: Private Physician; When: As needed; Reason: Recheck today's complaints, Re-evaluation by your physician. - Problem is new. - Symptoms have improved. Signatures: Wallace Quintero MD MD rn Leal, Jahala, RN RN jl7 Corrections: (The following items were deleted from the chart) 09:46 09:26 11/14/2020 09:26 Discharged to Home. Impression: Injury of conjunctiva and jl7 corneal abrasion without foreign body, right eye. Condition is Stable. Forms are Medication Reconciliation Form, Thank You Letter, Antibiotic Education, Prescription Opioid Use. Follow up: Private Physician; When: As needed; Reason: Recheck today's complaints, Re-evaluation by your physician. Problem is new. Symptoms have improved. rn
[2020-11-14 09:57] VITALS: BP 144/87; TEMP 98.4; O2SAT 100
== END 2020-11-14 09:46 | disposition home or self-care (01) ==
LOC: ER 08:31
DX: S05.01XA Injury of conjunctiva and corneal abrasion without foreign body, right eye, initial encounter (principal); F17.210 Nicotine dependence, cigarettes, uncomplicated; Z88.5 Allergy status to narcotic agent
CPT/HCPCS: 99284

== ENCOUNTER 2022-07-05 14:54 | Emergency (ER) | payer BC ==
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
[2022-07-05] MEDS ORDERED: TDAP (DIPHTH,PERTUSS(ACELL),TET VAC) 0.5 ML VIAL IMVAC ONE (15:14)
--- NOTE | 2022-07-05 16:56 | RAD REPORT ---
EXAM DESCRIPTION: RAD - Foot Left 3 View - 07/05/2022 4:36 pm CLINICAL HISTORY: r/o fb, puncture wound plantar surface of the foot COMPARISON: No comparisons FINDINGS: No fracture, dislocation or periosteal reaction. No acute or destructive bony process. No acute bone or joint finding. No air or foreign body in the soft tissues. Site of puncture was not delineated. IMPRESSION: Negative left foot examination.
--- NOTE | 2022-07-05 18:16 | EDPHYS ---
Physician Documentation [facility] Name: Terry Way Age: 21 yrs Sex: Male : 2000 Arrival Date: 07/05/2022 Time: 14:59 Bed 26 Private MD: ED Physician Good Hobbs HPI: 07/05 23:21 This 21 yrs old Male presents to ER via Ambulatory with complaints of Foot Injury. kb 23:21 The patient or guardian reports the patient has a suspected foreign body, left heel. kb The reported likely foreign body is unknown. Onset: The symptoms/episode began/occurred at 12:00. Current symptoms: foreign body sensation, pain. Treatment Prior to Arrival: tried to remove, but couldn't get out. The patient has not experienced similar symptoms in the past. The patient has not recently seen a physician. Pt states he stepped on something [place] the [place] around 1200 today. Reports he pulled out what looked like rust, but he didn't know exactly what he stepped on. . Historical: - Allergies: 15:08 Codeine; kb3 - Home Meds: 15:08 Pepcid 20 mg Oral tab 1 tab 2 times per day [Active]; kb3 - PMHx: 15:08 GERD; kb3 - PSHx: 15:08 Tonsillectomy; Appendectomy; kb3 - Immunization history:: Adult Immunizations up to date, Client reports having NOT received the Covid vaccine. Last tetanus immunization: unknown. - Social history:: Smoking status: Reported history of juuling and/or vaping. ROS: 23:19 Constitutional: Negative for fever, chills, and weight loss. kb 23:19 MS/extremity: Positive for pain, tenderness, of the heel of left foot. 23:19 All other systems are negative. Exam: 23:19 Constitutional: This is a well developed, well nourished patient who is awake, alert, kb and in no acute distress. Head/Face: Normocephalic, atraumatic. ENT: Moist Mucous membranes Cardiovascular: Regular rate and rhythm with a normal S1 and S2. No gallops, murmurs, or rubs. No pulse deficits. Respiratory: Respirations even and unlabored. No increased work of breathing. Talking in full sentences Neuro: Awake and alert, GCS 15, oriented to person, place, time, and situation. Moves all extremities. Normal gait. Psych: Awake, alert, with orientation to person, place and time. Behavior, mood, and affect are within normal limits. 23:19 Musculoskeletal/extremity: Extremities: grossly normal except: noted in the heel of left foot: pain, puncture, tenderness, ROM: intact in all extremities, Circulation is intact in all extremities. Sensation intact. Weight bearing: able to fully bear weight. 23:19 Skin: injury, puncture(s), that are superficial, of the heel of left foot. Vital Signs: 15:05 BP 143 / 81; Pulse 86; Resp 18; Temp 99; Pulse Ox 100% ; Weight 99.79 kg; Height 5 ft. kb3 10 in. (177.80 cm); Pain 4/10; 16:04 BP 118 / 73; Pulse 88; Resp 16; Pulse Ox 99% on R/A; em6 17:13 BP 123 / 69; Pulse 86; Resp 16; Pulse Ox 100% on R/A; em6 15:05 Body Mass Index 31.57 (99.79 kg, 177.80 cm) kb3 MDM: 15:06 Patient medically screened. kb 23:19 Data reviewed: vital signs, nurses notes. Data interpreted: Pulse oximetry: on room air kb is 100 %. Interpretation: normal. 23:20 Counseling: I had a detailed discussion with the patient and/or guardian regarding: the kb historical points, exam findings, and any diagnostic results supporting the discharge/admit diagnosis, radiology results, the need for outpatient follow up, a family practitioner, to return to the emergency department if symptoms worsen or persist or if there are any questions or concerns that arise at home. ED course: Bedside US used by Dr Hobbs to evaluate area. No detectable FB seen. Pt educated to follow up with PCP if symptoms persist. . 07/05 15:06 Order name: Foot Left 3 View XRAY; Complete Time: 17:06 kb Administered Medications: 15:15 Drug: Tetanus-Diphtheria Toxoid Adult 0.5 ml {Chief Engineer Research: [employer] ([employer]). Exp: kb3 01/11/2023. Lot #: [id number]. } Route: IM; Site: right deltoid; 16:04 Follow up: Response: No adverse reaction em6 Disposition Summary: 07/05/22 18:15 Discharge Ordered Location: Home kb Condition: Stable kb Diagnosis - Puncture wound without foreign body of foot kb Followup: kb - With: Emergency Department - When: As needed - Reason: Worsening of condition Followup: kb - With: Private Physician - When: 2 - 3 days - Reason: Recheck today's complaints, Continuance of care, Re-evaluation by your physician Followup: kb - With: Zach Stewart DO - When: 2 - 3 days - Reason: Recheck today's complaints Discharge Instructions: - Discharge Summary Sheet kb - Puncture Wound, [id number] kb Forms: - Medication Reconciliation Form kb - Thank You Letter kb - Antibiotic Education kb - Prescription Opioid Use kb Addendum: 07/07/2022 12:38 Co-signature as Attending Physician, Good Hobbs DO I was immediately available on-site m s3 in the Emergency Department for consultation in the care of the patient.. Signatures: Dispatcher [employer] EDMS Kassie Esquivel, ILIA-C CHALKER SOLES-Ckb Good Hobbs DO DO ms3 Salome Wolfe, RN RN kb3 Zaida Conway RN em6
--- NOTE | 2022-07-05 18:16 | ER ---
Nurse's Notes [facility] Name: Terry Way Age: 21 yrs Sex: Male : 2000 Arrival Date: 07/05/2022 Time: 14:59 Bed 26 Private MD: Diagnosis: Puncture wound without foreign body of foot Presentation: 07/05 15:05 Chief complaint: Patient states: he stepped on an unknown metal object with his left kb3 foot while at work at approximately 1200 today. PT reports he tried to dig it out with his knife but believes there might still be something lodged in the bottom of the foot. Coronavirus screen: Vaccine status: Patient reports being unvaccinated. Client denies travel out of the [place] in the last 14 days. Ebola Screen: Patient negative for fever greater than or equal to 101.5 degrees Fahrenheit, and additional compatible Ebola Virus Disease symptoms Patient denies exposure to infectious person. Patient denies travel to an Ebola-affected area in the 21 days before illness onset. Initial Sepsis Screen: Does the patient meet any 2 criteria? No. Patient's initial sepsis screen is negative. Does the patient have a suspected source of infection? No. Patient's initial sepsis screen is negative. Risk Assessment: Do you want to hurt yourself or someone else? Patient reports no desire to harm self or others. Onset of symptoms was July 05, 2022 at 12:00. 15:05 Method Of Arrival: Ambulatory 3 15:05 Acuity: INOCENTE 4 kb3 Triage Assessment: 15:08 General: Appears in no apparent distress. Behavior is calm, cooperative. Pain: kb3 Complains of pain in heel of left foot Pain does not radiate. Pain currently is 4 out of 10 on a pain scale. at worst was 7 out of 10 on a pain scale. Quality of pain is described as sharp. Historical: - Allergies: 15:08 Codeine; kb3 - Home Meds: 15:08 Pepcid 20 mg Oral tab 1 tab 2 times per day [Active]; kb3 - PMHx: 15:08 GERD; kb3 - PSHx: 15:08 Tonsillectomy; Appendectomy; kb3 - Immunization history:: Adult Immunizations up to date, Client reports having NOT received the Covid vaccine. Last tetanus immunization: unknown. - Social history:: Smoking status: Reported history of juuling and/or vaping. Screenin:20 [facility] ED Fall Risk Assessment (Adult) History of falling in the last 3 months, kb3 including since admission No falls in past 3 months (0 pts) Confusion or Disorientation No (0 pts) Intoxicated or Sedated No (0 pts) Impaired Gait No (0 pts) Mobility Assist Device Used No (0 pt) Altered Elimination No (0 pt) Score/Fall Risk Level 0 - 2 = Low Risk Oriented to surroundings, Maintained a safe environment, Educated pt \T\ family on fall prevention, incl call for assistance when getting out of bed, Assessed \T\ reinforced patient's understanding of fall precautions, Provided non-skid footwear, Hourly rounding (assess needs \T\ fall precautionary measures) done, Used ambulatory aids as needed (educated on \T\ assisted with), Used gait belt as appropriate. Abuse screen: Denies threats or abuse. Denies injuries from another. Nutritional screening: No deficits noted. Tuberculosis screening: No symptoms or risk factors identified. Assessment: 15:20 General: see triage note. Pain: Complains of pain in heel of left foot. kb3 Musculoskeletal: Reports pain in heel of left foot. 16:02 General: Appears in no apparent distress. Behavior is cooperative. Pain: Complains of em6 pain in left foot and heel of left foot Pain does not radiate. Pain currently is 1 out of 10 on a pain scale. Quality of pain is described as sharp, stabbing. Neuro: Level of Consciousness is awake, alert, obeys commands, Oriented to person, place, time, situation. Cardiovascular: Patient's skin is warm and dry. Respiratory: Airway is patent Respiratory effort is even, unlabored, Respiratory pattern is regular, symmetrical. GI: No signs and/or symptoms were reported involving the gastrointestinal system. : No signs and/or symptoms were reported regarding the genitourinary system. EENT: No signs and/or symptoms were reported regarding the EENT system. Derm: No signs and/or symptoms reported regarding the dermatologic system. Musculoskeletal: Circulation, motion, and sensation intact. Range of motion: intact in all extremities. Injury Description: Puncture sustained to heel of left foot is patient stepped on something at work and states pain when he puts pressure. 17:13 Reassessment: Patient appears in no apparent distress at this time. No changes from em6 previously documented assessment. Patient and/or family updated on plan of care and expected duration. Pain level reassessed. Patient is alert, oriented x 3, equal unlabored respirations, skin warm/dry/pink. Vital Signs: 15:05 BP 143 / 81; Pulse 86; Resp 18; Temp 99; Pulse Ox 100% ; Weight 99.79 kg; Height 5 ft. kb3 10 in. (177.80 cm); Pain 4/10; 16:04 BP 118 / 73; Pulse 88; Resp 16; Pulse Ox 99% on R/A; em6 17:13 BP 123 / 69; Pulse 86; Resp 16; Pulse Ox 100% on R/A; em6 15:05 Body Mass Index 31.57 (99.79 kg, 177.80 cm) kb3 ED Course: 14:59 Patient arrived in ED. cc5 15:01 Kass[facility]quivel [facility]C [facility]. kb 15:01 Good Hobbs DO is Attending Physician. kb 15:08 Triage completed. kb3 15:08 Arm band placed on right wrist. kb3 15:09 Salome Wolfe, RN is Primary Nurse. kb3 15:20 Patient has correct armband on for positive identification. kb3 15:20 No provider procedures requiring assistance completed. Patient did not have IV access kb3 during this emergency room visit. 16:38 Foot Left 3 View XRAY In Process Unspecified. EDMS 18:16 Zach Stewart DO is Referral Physician. kb Administered Medications: 15:15 Drug: Tetanus-Diphtheria Toxoid Adult 0.5 ml {Tour Director: [employer] Exp: kb3 01/11/2023. Lot #: [id number]. } Route: IM; Site: right deltoid; 16:04 Follow up: Response: No adverse reaction em6 Medication: 15:16 Vaccine Information Statement (VIS) provided today. Questions and/or concerns kb3 addressed. VIS edition date: February 02, 2021. Outcome: 18:15 Discharge ordered by . kb 18:29 Discharged to home ambulatory. ss 18:29 Condition: good 18:29 Discharge instructions given to patient, Instructed on discharge instructions, follow up and referral plans. medication usage, Demonstrated understanding of instructions, follow-up care, wound care. 18:31 Patient left the ED. ss Signatures: Dispatcher [employer] EDMS Kassie Esquivel, JULIETA BROWNP-Damaris Garcia, RN RN ss Zaida Conway RN RN em6 Salome Wolfe, RN RN kb3 Talha, Maryann 5
[2022-07-05 19:11] VITALS: TEMP 99
[2022-07-05 19:19] VITALS: BP 123/69; O2SAT 100
== END 2022-07-05 18:31 | disposition home or self-care (01) ==
LOC: ER 14:54
DX: S91.332A Puncture wound without foreign body, left foot, initial encounter (principal); Z23 Encounter for immunization; Z88.5 Allergy status to narcotic agent
CPT/HCPCS: 90471; 99283

== ENCOUNTER 2023-01-31 19:08 | Emergency (ER) | payer BC, SELFPAY ==
--- OUTSIDE RECORDS SUMMARY | 2023-01-31 19:36 | XMS REPORT | Continuity of Care Document ---
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 [email or web address]. UNLESS OTHERWIS E INDICATED, ALL TESTING PERFORM ED AT CLINICAL PATHOLOGY [employer] [facility]. [address] [place] [address] LABORATORY DIRE CTOR: REYES HENDRICKSON M.D. C SEEMA NUMBER [id number] [facility] [place]. [id number] CBC W/AUTO DIFF WITH [id number] 06:47:47 Test Item Value Reference Range Interpretation Comments WBC (test code = 9.3 K/UL 3.5-11.0 1001) RBC (test code = 5.19 M/UL 4.50-6.10 1002) HEMOGLOBIN (test code 15.5 G/DL 13.5-17.0 = 1003) HEMATOCRIT (test code 44.7 % 40.0-51.0 = 1004) MCV (test code = 86.1 fL 80.0-99.0 1005) MCH (test code = 29.9 PG 25.0-33.0 1006) MCHC (test code = 34.7 G/DL 31.0-36.0 1007) RDW (test code = 13.5 % 11.5-15.0 1038) NEUTROPHILS (test 62.3 % code = 1008) LYMPHOCYTES (test 25.6 % code = 1010) MONOCYTES (test code 9.3 % = 1011) EOSINOPHILS (test 1.3 % code = 1012) BASOPHILS (test code 0.5 % = 1013) IMMATURE GRANULOCYTES 1.0 % (test code = 1036) NUCLEATED RBCS (test 0.0 /100 WBC'S See_Comment [Aut omated code = 1065) message] The sy stem which generated this result transmitted reference range : 0.0. The refere nce range was not u sed to interpret th is result as normal/abnormal . PLATELET COUNT (test 336 K/UL 130-400 code = 1015) ABSOLUTE NEUTROPHILS 5.76 K/UL 1.50-7.50 (test code = 1066) ABSOLUTE LYMPHOCYTES 2.37 K/UL 1.00-4.00 (test code = 1067) ABSOLUTE MONOCYTES 0.86 K/UL 0.20-1.00 (test code = 1068) ABSOLUTE EOSINOPHILS 0.12 K/UL 0.00-0.50 (test code = 1040) ABSOLUTE BASOPHILS 0.05 K/UL 0.00-0.20 (test code = 1069) ABS IMMATURE 0.09 K/UL 0.00-0.10 GRANULOCYTES (test code = 1020) ABS NUCLEATED RBCS 0.00 K/UL 0.00-0.11 (test code = 66487) BLOOD BANK [id number] 08:17:48 Test Item Value Reference Range Interpretation Comments ABO/Rh (test code = ABO/Rh) O POS [facility] [id number] 08:17:48 Test Item Value Reference Range Interpretation Comments Antibody Scrn (test Negative (09/22/19 3:17 code = Antibody Scrn) AM) [facility] [id number] 08:17:48 Test Item Value Reference Range Interpretation Comments ABO/Rh (test code = ABO/Rh) O [facility] [id number] 08:17:48 Test Item Value Reference Range Interpretation Comments Antibody Scrn (test Negative (09/22/19 3:17 code = Antibody Scrn) AM) [facility] [id number] 08:17:48 Test Item Value Reference Range Interpretation Comments ABO/Rh (test code = ABO/Rh) O POS [facility] [id number] 08:17:48 Test Item Value Reference Range Interpretation Comments Antibody Scrn (test Negative (09/22/19 3:17 code = Antibody Scrn) AM) [facility] [id number] 08:17:48 Test Item Value Reference Range Interpretation Comments ABO/Rh (test code = ABO/Rh) O [facility] [id number] 08:17:48 Test Item Value Reference Range Interpretation Comments Antibody Scrn (test Negative (09/22/19 3:17 code = Antibody Scrn) AM) [id number] 08:02:00 Test Item Value Reference Range Interpretation Comments WBC X 10x3 (test code = WBC X 10x3) 8.6 3.7-10.4 [facility] H[id number] 08:02:00 Test Item Value Reference Range Interpretation Comments RBC X 10x6 (test code = RBC X 10x6) 5.04 4.70-6.10 [facility] HospitalXdrpopxLWKMMKSBJO8631-00-12 08:02:00 Test Item Value Reference Range Interpretation Comments Hgb (test code = Hgb) 14.1 14.0-18.0 [facility] HospitalJmnqtehJGPCBEEMZT1136-06-68 08:02:00 Test Item Value Reference Range Interpretation Comments Hct (test code = Hct) 41.8 42.0-54.0 [facility] HospitalKvgbompNRJGGMTSFB0236-33-49 08:02:00 Test Item Value Reference Range Interpretation Comments MCV (test code = MCV) 82.9 80.0-94.0 [facility] H[id number] 08:02:00 Test Item Value Reference Range Interpretation Comments MCH (test code = MCH) 28.0 pg 27.0-31.0 [facility] [id number] 08:02:00 Test Item Value Reference Range Interpretation Comments MCHC (test code = MCHC) 33.8 32.0-36.0 [facility] HospitalFqrqwnwFFIICSIJLX7260-61-12 08:02:00 Test Item Value Reference Range Interpretation Comments RDW (test code = RDW) 16.2 11.5-14.5 [facility] HospitalVtmqrfqKROZXQYOFK1743-32-14 08:02:00 Test Item Value Reference Range Interpretation Comments Platelet (test code = Platelet) 285 133-450 [facility] HospitalXbwfrfaQOJALBOIZY4798-97-55 08:02:00 Test Item Value Reference Range Interpretation Comments MPV (test code = MPV) 7.7 7.4-10.4 [facility] HospitalHgodhpkTIVWDMXNHE1494-63-35 08:02:00 Test Item Value Reference Range Interpretation Comments PT (test code = PT) 13.0 s 12.0-14.7 [facility] HospitalJtjzkxzGVGXPZFWVE4947-81-89 08:02:00 Test Item Value Reference Range Interpretation Comments INR (test code = INR) 0.98 1 0.85-1.17 [place] 493020-03-25 08:02:00 Test Item Value Reference Range Interpretation Comments PTT (test code = PTT) 26.4 s 22.9-35.8 [place] 493020-03-25 08:02:00 Test Item Value Reference Range Interpretation Comments Segs (test code = Segs) 50.8 45.0-75.0 [place] 493020-03-25 08:02:00 Test Item Value Reference Range Interpretation Comments Lymphocytes (test code = Lymphocytes) 38.0 20.0-40.0 [place] [address]-03-25 08:02:00 Test Item Value Reference Range Interpretation Comments Monocytes (test code = Monocytes) 9.6 2.0-12.0 [place] [address]-03-25 08:02:00 Test Item Value Reference Range Interpretation Comments Eosinophils (test code = 1.2 See_Comment [A utomated message] The Eosinophils) system which ge nerated this result tra nsmitted reference range : <=4.0. The reference r vivienne was not used to int erpret this result as normal/abnormal . [facility] H[id number] 08:02:00 Test Item Value Reference Range Interpretation Comments Basophils (test code = 0.4 See_Comment [Aut omated message] The Basophils) system which ge nerated this result tra nsmitted reference range : <=1.0. The reference r vivienne was not used to int erpret this result as normal/abnormal . [facility] HospitalXifrwewGXDXTSURVV9176-99-30 08:02:00 Test Item Value Reference Range Interpretation Comments Neutrophils # (test code = Neutrophils 4.4 1.5-8.1 #) [facility] HospitalExlnkilHQFUQGGSDN5548-68-32 08:02:00 Test Item Value Reference Range Interpretation Comments Lymphocytes # (test code = Lymphocytes 3.3 1.0-5.5 #) [place] [address]-03-25 08:02:00 Test Item Value Reference Range Interpretation Comments Monocytes # (test code 0.8 See_Comment [Aut omated message] The = Monocytes #) system which generated this result tra nsmitted reference range : <=0.8. The reference r vivienne was not used to int erpret this result as normal/abnormal . [place] [address]-03-25 08:02:00 Test Item Value Reference Range Interpretation Comments Eosinophils # (test code 0.1 See_Comment [A utomated message] The = Eosinophils #) system whic h generated this result tra nsmitted reference range : <=0.5. The reference r vivienne was not used to int erpret this result as normal/abnormal . [facility] [id number] 08:02:00 Test Item Value Reference Range Interpretation Comments Total CK (test code = Total CK) 179 12-191 [facility] [employer] [id number] 08:02:00 Test Item Value Reference Range Interpretation Comments Glucose Lvl (test code = Glucose Lvl) 124 70-99 [facility] [id number] 08:02:00 Test Item Value Reference Range Interpretation Comments BUN (test code = BUN) 14 7-22 [facility] [id number] 08:02:00 Test Item Value Reference Range Interpretation Comments Creatinine Lvl (test code = Creatinine 1.04 0.50-1.40 Lvl) [facility] [id number] 08:02:00 Test Item Value Reference Range Interpretation Comments Sodium Lvl (test code = Sodium Lvl) 142 135-145 [facility] [id number] 08:02:00 Test Item Value Reference Range Interpretation Comments Potassium Lvl (test code = Potassium 3.6 3.5-5.1 Lvl) [facility] [id number] 08:02:00 Test Item Value Reference Range Interpretation Comments Chloride Lvl (test code = Chloride Lvl) 112 95-109 [facility] [id number] 08:02:00 Test Item Value Reference Range Interpretation Comments CO2 (test code = CO2) 24 24-32 [facility] [id number] 08:02:00 Test Item Value Reference Range Interpretation Comments Calcium Lvl (test code = Calcium Lvl) 7.8 8.5-10.5 [facility] [id number] 08:02:00 Test Item Value Reference Range Interpretation Comments AGAP (test code = AGAP) 9.6 10.0-20.0 [facility] [id number] 08:02:00 Test Item Value Reference Range Interpretation Comments eGFR (test code = eGFR) 104 [facility]2020-03-25 08:02:00 Test Item Value Reference Range Interpretation Comments Magnesium Lvl (test code = Magnesium 2.1 1.8-2.4 Lvl) [facility]2020-03-25 08:02:00 Test Item Value Reference Range Interpretation Comments Phosphorus (test code = Phosphorus) 2.0 2.5-4.5 [facility] HospitalSsvftixKHZQDAETSE2848-99-90 08:02:00 Test Item Value Reference Range Interpretation Comments WBC X 10x3 (test code = WBC X 10x3) 8.6 3.7-10.4 [facility] HospitalRuoiizmWRNDUMEKHT6674-02-97 08:02:00 Test Item Value Reference Range Interpretation Comments RBC X 10x6 (test code = RBC X 10x6) 5.04 4.70-6.10 [facility] HospitalHzfikprRLNKUFXPNX6099-17-32 08:02:00 Test Item Value Reference Range Interpretation Comments Hgb (test code = Hgb) 14.1 14.0-18.0 [facility] HospitalYdihdrwVFXABMMOBW4634-83-09 08:02:00 Test Item Value Reference Range Interpretation Comments Hct (test code = Hct) 41.8 42.0-54.0 [facility] HospitalGgwaajqTETNTDXVSY4649-62-96 08:02:00 Test Item Value Reference Range Interpretation Comments MCV (test code = MCV) 82.9 80.0-94.0 [facility] HospitalVkyjywfCTKCPPCKXZ5785-25-00 08:02:00 Test Item Value Reference Range Interpretation Comments MCH (test code = MCH) 28.0 pg 27.0-31.0 [facility] HospitalNldytmgWNMUMYOUEM4269-61-67 08:02:00 Test Item Value Reference Range Interpretation Comments MCHC (test code = MCHC) 33.8 32.0-36.0 [place] 493020-03-25 08:02:00 Test Item Value Reference Range Interpretation Comments RDW (test code = RDW) 16.2 11.5-14.5 [facility] H[id number] 08:02:00 Test Item Value Reference Range Interpretation Comments Platelet (test code = Platelet) 285 133-450 [facility] HospitalAufjagcSQEZECGIYZ4678-09-09 08:02:00 Test Item Value Reference Range Interpretation Comments MPV (test code = MPV) 7.7 7.4-10.4 [place] 493020-03-25 08:02:00 Test Item Value Reference Range Interpretation Comments PT (test code = PT) 13.0 s 12.0-14.7 [place] 493020-03-25 08:02:00 Test Item Value Reference Range Interpretation Comments INR (test code = INR) 0.98 1 0.85-1.17 [place] 493020-03-25 08:02:00 Test Item Value Reference Range Interpretation Comments PTT (test code = PTT) 26.4 s 22.9-35.8 [place] [address]-03-25 08:02:00 Test Item Value Reference Range Interpretation Comments Segs (test code = Segs) 50.8 45.0-75.0 [place] [address]-03-25 08:02:00 Test Item Value Reference Range Interpretation Comments Lymphocytes (test code = Lymphocytes) 38.0 20.0-40.0 [place] 493020-03-25 08:02:00 Test Item Value Reference Range Interpretation Comments Monocytes (test code = Monocytes) 9.6 2.0-12.0 [place] 493020-03-25 08:02:00 Test Item Value Reference Range Interpretation Comments Eosinophils (test code = 1.2 See_Comment [A utomated message] The Eosinophils) system which ge nerated this result tra nsmitted reference range : <=4.0. The reference r vivienne was not used to int erpret this result as normal/abnormal . [facility] HospitalBbykaeqZIWAOQYRVN0421-27-96 08:02:00 Test Item Value Reference Range Interpretation Comments Basophils (test code = 0.4 See_Comment [Aut omated message] The Basophils) system which ge nerated this result tra nsmitted reference range : <=1.0. The reference r vivienne was not used to int erpret this result as normal/abnormal . [facility] HospitalSexrclcIUBOUVDTEB2194-10-65 08:02:00 Test Item Value Reference Range Interpretation Comments Neutrophils # (test code = Neutrophils 4.4 1.5-8.1 #) [facility] HospitalYfjeqmeYTVJVJXCSC9821-87-30 08:02:00 Test Item Value Reference Range Interpretation Comments Lymphocytes # (test code = Lymphocytes 3.3 1.0-5.5 #) [place] 493020-03-25 08:02:00 Test Item Value Reference Range Interpretation Comments Monocytes # (test code 0.8 See_Comment [Aut omated message] The = Monocytes #) system which generated this result tra nsmitted reference range : <=0.8. The reference r vivienne was not used to int erpret this result as normal/abnormal . [facility] HospitalAjwnjyeGLNEMZJPGY9632-34-81 08:02:00 Test Item Value Reference Range Interpretation Comments Eosinophils # (test code 0.1 See_Comment [A utomated message] The = Eosinophils #) system whic h generated this result tra nsmitted reference range : <=0.5. The reference r vivienne was not used to int erpret this result as normal/abnormal . [facility]CARD[facility] [id number] 08:02:00 Test Item Value Reference Range Interpretation Comments Total CK (test code = Total CK) 179 12-191 [facility] [id number] 08:02:00 Test Item Value Reference Range Interpretation Comments Glucose Lvl (test code = Glucose Lvl) 124 70-99 [facility] [employer] [id number] 08:02:00 Test Item Value Reference Range Interpretation Comments BUN (test code = BUN) 14 7-22 [facility] [employer] [id number] 08:02:00 Test Item Value Reference Range Interpretation Comments Creatinine Lvl (test code = Creatinine 1.04 0.50-1.40 Lvl) [facility] [id number] 08:02:00 Test Item Value Reference Range Interpretation Comments Sodium Lvl (test code = Sodium Lvl) 142 135-145 [facility] [employer] [id number] 08:02:00 Test Item Value Reference Range Interpretation Comments Potassium Lvl (test code = Potassium 3.6 3.5-5.1 Lvl) [facility] [employer] [id number] 08:02:00 Test Item Value Reference Range Interpretation Comments Chloride Lvl (test code = Chloride Lvl) 112 95-109 [facility] [employer] [id number] 08:02:00 Test Item Value Reference Range Interpretation Comments CO2 (test code = CO2) 24 24-32 [facility] [id number] 08:02:00 Test Item Value Reference Range Interpretation Comments Calcium Lvl (test code = Calcium Lvl) 7.8 8.5-10.5 [place] 234390-03-25 08:02:00 Test Item Value Reference Range Interpretation Comments AGAP (test code = AGAP) 9.6 10.0-20.0 [place] [address]-03-25 08:02:00 Test Item Value Reference Range Interpretation Comments eGFR (test code = eGFR) 104 [facility]2020-03-25 08:02:00 Test Item Value Reference Range Interpretation Comments Magnesium Lvl (test code = Magnesium 2.1 1.8-2.4 Lvl) [place] 234390-03-25 08:02:00 Test Item Value Reference Range Interpretation Comments Phosphorus (test code = Phosphorus) 2.0 2.5-4.5 [place] [address]-03-25 08:02:00 Test Item Value Reference Range Interpretation Comments WBC X 10x3 (test code = WBC X 10x3) 8.6 3.7-10.4 [place] [address]-03-25 08:02:00 Test Item Value Reference Range Interpretation Comments RBC X 10x6 (test code = RBC X 10x6) 5.04 4.70-6.10 [place] [address]-03-25 08:02:00 Test Item Value Reference Range Interpretation Comments Hgb (test code = Hgb) 14.1 14.0-18.0 [place] [address]-03-25 08:02:00 Test Item Value Reference Range Interpretation Comments Hct (test code = Hct) 41.8 42.0-54.0 [place] [address]-03-25 08:02:00 Test Item Value Reference Range Interpretation Comments MCV (test code = MCV) 82.9 80.0-94.0 [place] [address]-03-25 08:02:00 Test Item Value Reference Range Interpretation Comments MCH (test code = MCH) 28.0 pg 27.0-31.0 [place] [address]-03-25 08:02:00 Test Item Value Reference Range Interpretation Comments MCHC (test code = MCHC) 33.8 32.0-36.0 [place] [address]-03-25 08:02:00 Test Item Value Reference Range Interpretation Comments RDW (test code = RDW) 16.2 11.5-14.5 [place] [address]-03-25 08:02:00 Test Item Value Reference Range Interpretation Comments Platelet (test code = Platelet) 285 133-450 [place] [address]-03-25 08:02:00 Test Item Value Reference Range Interpretation Comments MPV (test code = MPV) 7.7 7.4-10.4 [place] [address]-03-25 08:02:00 Test Item Value Reference Range Interpretation Comments PT (test code = PT) 13.0 s 12.0-14.7 [place] [address]-03-25 08:02:00 Test Item Value Reference Range Interpretation Comments INR (test code = INR) 0.98 1 0.85-1.17 [place] [address]-03-25 08:02:00 Test Item Value Reference Range Interpretation Comments PTT (test code = PTT) 26.4 s 22.9-35.8 [place] [address]-03-25 08:02:00 Test Item Value Reference Range Interpretation Comments Segs (test code = Segs) 50.8 45.0-75.0 [place] [address]-03-25 08:02:00 Test Item Value Reference Range Interpretation Comments Lymphocytes (test code = Lymphocytes) 38.0 20.0-40.0 [place] [address]-03-25 08:02:00 Test Item Value Reference Range Interpretation Comments Monocytes (test code = Monocytes) 9.6 2.0-12.0 [place] [address]-03-25 08:02:00 Test Item Value Reference Range Interpretation Comments Eosinophils (test code = 1.2 See_Comment [A utomated message] The Eosinophils) system which ge nerated this result tra nsmitted reference range : <=4.0. The reference r vivienne was not used to int erpret this result as normal/abnormal . [place] [address]-03-25 08:02:00 Test Item Value Reference Range Interpretation Comments Basophils (test code = 0.4 See_Comment [Aut omated message] The Basophils) system which ge nerated this result tra nsmitted reference range : <=1.0. The reference r vivienne was not used to int erpret this result as normal/abnormal . [place] [address]-03-25 08:02:00 Test Item Value Reference Range Interpretation Comments Neutrophils # (test code = Neutrophils 4.4 1.5-8.1 #) [facility] HospitalScghbfhAGTQNBGJKV3995-04-99 08:02:00 Test Item Value Reference Range Interpretation Comments Lymphocytes # (test code = Lymphocytes 3.3 1.0-5.5 #) [facility]BWX0756-19-61 08:02:00 Test Item Value Reference Range Interpretation Comments Monocytes # (test code 0.8 See_Comment [Aut omated message] The = Monocytes #) system which generated this result tra nsmitted reference range : <=0.8. The reference r vivienne was not used to int erpret this result as normal/abnormal . [facility] HospitalOctixpjQXYPOOLWXN4749-70-33 08:02:00 Test Item Value Reference Range Interpretation Comments Eosinophils # (test code 0.1 See_Comment [A utomated message] The = Eosinophils #) system whic h generated this result tra nsmitted reference range : <=0.5. The reference r vivienne was not used to int erpret this result as normal/abnormal . [facility] [id number] 08:02:00 Test Item Value Reference Range Interpretation Comments Total CK (test code = Total CK) 179 12-191 [facility] [id number] 08:02:00 Test Item Value Reference Range Interpretation Comments Glucose Lvl (test code = Glucose Lvl) 124 70-99 [facility]2020-03-25 08:02:00 Test Item Value Reference Range Interpretation Comments BUN (test code = BUN) 14 7-22 [facility] [id number] 08:02:00 Test Item Value Reference Range Interpretation Comments Creatinine Lvl (test code = Creatinine 1.04 0.50-1.40 Lvl) [facility] [id number] 08:02:00 Test Item Value Reference Range Interpretation Comments Sodium Lvl (test code = Sodium Lvl) 142 135-145 [facility] [id number] 08:02:00 Test Item Value Reference Range Interpretation Comments Potassium Lvl (test code = Potassium 3.6 3.5-5.1 Lvl) [facility] [id number] 08:02:00 Test Item Value Reference Range Interpretation Comments Chloride Lvl (test code = Chloride Lvl) 112 95-109 [facility]2020-03-25 08:02:00 Test Item Value Reference Range Interpretation Comments CO2 (test code = CO2) 24 24-32 [place] 234390-03-25 08:02:00 Test Item Value Reference Range Interpretation Comments Calcium Lvl (test code = Calcium Lvl) 7.8 8.5-10.5 [place] 234390-03-25 08:02:00 Test Item Value Reference Range Interpretation Comments AGAP (test code = AGAP) 9.6 10.0-20.0 [facility]2020-03-25 08:02:00 Test Item Value Reference Range Interpretation Comments eGFR (test code = eGFR) 104 [facility]2020-03-25 08:02:00 Test Item Value Reference Range Interpretation Comments Magnesium Lvl (test code = Magnesium 2.1 1.8-2.4 Lvl) [facility]2020-03-25 08:02:00 Test Item Value Reference Range Interpretation Comments Phosphorus (test code = Phosphorus) 2.0 2.5-4.5 [facility] HospitalYsuvrvpDSSECKCXTO7177-66-36 08:02:00 Test Item Value Reference Range Interpretation Comments WBC X 10x3 (test code = WBC X 10x3) 8.6 3.7-10.4 [place] 493020-03-25 08:02:00 Test Item Value Reference Range Interpretation Comments RBC X 10x6 (test code = RBC X 10x6) 5.04 4.70-6.10 [place] 493020-03-25 08:02:00 Test Item Value Reference Range Interpretation Comments Hgb (test code = Hgb) 14.1 14.0-18.0 [place] [address]-03-25 08:02:00 Test Item Value Reference Range Interpretation Comments Hct (test code = Hct) 41.8 42.0-54.0 [place] [address]-03-25 08:02:00 Test Item Value Reference Range Interpretation Comments MCV (test code = MCV) 82.9 80.0-94.0 [place] [address]-03-25 08:02:00 Test Item Value Reference Range Interpretation Comments MCH (test code = MCH) 28.0 pg 27.0-31.0 [place] [address]-03-25 08:02:00 Test Item Value Reference Range Interpretation Comments MCHC (test code = MCHC) 33.8 32.0-36.0 [place] [address]-03-25 08:02:00 Test Item Value Reference Range Interpretation Comments RDW (test code = RDW) 16.2 11.5-14.5 [place] [address]-03-25 08:02:00 Test Item Value Reference Range Interpretation Comments Platelet (test code = Platelet) 285 133-450 [place] [address]-03-25 08:02:00 Test Item Value Reference Range Interpretation Comments MPV (test code = MPV) 7.7 7.4-10.4 [place] [address]-03-25 08:02:00 Test Item Value Reference Range Interpretation Comments PT (test code = PT) 13.0 s 12.0-14.7 [place] [address]-03-25 08:02:00 Test Item Value Reference Range Interpretation Comments INR (test code = INR) 0.98 1 0.85-1.17 [place] [address]-03-25 08:02:00 Test Item Value Reference Range Interpretation Comments PTT (test code = PTT) 26.4 s 22.9-35.8 [place] [address]-03-25 08:02:00 Test Item Value Reference Range Interpretation Comments Segs (test code = Segs) 50.8 45.0-75.0 [place] [address]-03-25 08:02:00 Test Item Value Reference Range Interpretation Comments Lymphocytes (test code = Lymphocytes) 38.0 20.0-40.0 [place] [address]-03-25 08:02:00 Test Item Value Reference Range Interpretation Comments Monocytes (test code = Monocytes) 9.6 2.0-12.0 [place] [address]-03-25 08:02:00 Test Item Value Reference Range Interpretation Comments Eosinophils (test code = 1.2 See_Comment [A utomated message] The Eosinophils) system which ge nerated this result tra nsmitted reference range : <=4.0. The reference r vivienne was not used to int erpret this result as normal/abnormal . [place] 493020-03-25 08:02:00 Test Item Value Reference Range Interpretation Comments Basophils (test code = 0.4 See_Comment [Aut omated message] The Basophils) system which ge nerated this result tra nsmitted reference range : <=1.0. The reference r vivienne was not used to int erpret this result as normal/abnormal . [id number]:02:00 Test Item Value Reference Range Interpretation Comments Neutrophils # (test code = Neutrophils 4.4 1.5-8.1 #) [id number] 08:02:00 Test Item Value Reference Range Interpretation Comments Lymphocytes # (test code = Lymphocytes 3.3 1.0-5.5 #) [id number] 08:02:00 Test Item Value Reference Range Interpretation Comments Monocytes # (test code 0.8 See_Comment [Aut omated message] The = Monocytes #) system which generated this result tra nsmitted reference range : <=0.8. The reference r vivienne was not used to int erpret this result as normal/abnormal . [id number] 08:02:00 Test Item Value Reference Range Interpretation Comments Eosinophils # (test code 0.1 See_Comment [A utomated message] The = Eosinophils #) system whic h generated this result tra nsmitted reference range : <=0.5. The reference r vivienne was not used to int erpret this result as normal/abnormal . [facility]CARD[facility]AC [id number] 08:02:00 Test Item Value Reference Range Interpretation Comments Total CK (test code = Total CK) 179 12-191 [facility] [id number] 08:02:00 Test Item Value Reference Range Interpretation Comments Glucose Lvl (test code = Glucose Lvl) 124 70-99 [facility] [id number] 08:02:00 Test Item Value Reference Range Interpretation Comments BUN (test code = BUN) 14 7-22 [facility] [id number] 08:02:00 Test Item Value Reference Range Interpretation Comments Creatinine Lvl (test code = Creatinine 1.04 0.50-1.40 Lvl) [facility] [id number] 08:02:00 Test Item Value Reference Range Interpretation Comments Sodium Lvl (test code = Sodium Lvl) 142 135-145 [facility]2020-03-25 08:02:00 Test Item Value Reference Range Interpretation Comments Potassium Lvl (test code = Potassium 3.6 3.5-5.1 Lvl) [facility]2020-03-25 08:02:00 Test Item Value Reference Range Interpretation Comments Chloride Lvl (test code = Chloride Lvl) 112 95-109 [facility]2020-03-25 08:02:00 Test Item Value Reference Range Interpretation Comments CO2 (test code = CO2) 24 24-32 [place] [id number] 08:02:00 Test Item Value Reference Range Interpretation Comments Calcium Lvl (test code = Calcium Lvl) 7.8 8.5-10.5 [facility]2020-03-25 08:02:00 Test Item Value Reference Range Interpretation Comments AGAP (test code = AGAP) 9.6 10.0-20.0 [facility]2020-03-25 08:02:00 Test Item Value Reference Range Interpretation Comments eGFR (test code = eGFR) 104 [facility]2020-03-25 08:02:00 Test Item Value Reference Range Interpretation Comments Magnesium Lvl (test code = Magnesium 2.1 1.8-2.4 Lvl) [facility]2020-03-25 08:02:00 Test Item Value Reference Range Interpretation Comments Phosphorus (test code = Phosphorus) 2.0 2.5-4.5 [facility]
--- NOTE | 2023-01-31 20:14 | RAD REPORT ---
EXAM DESCRIPTION: Francesco Single View01/31/2023 7:54 pm CLINICAL HISTORY: Chest pain COMPARISON: none FINDINGS: The lungs appear clear of acute infiltrate. The heart is normal size IMPRESSION: No acute abnormalities displayed
[2023-01-31 23:18] LABS: Absolute Lymphocytes (CBC) 2.3 K/uL (0.7-4.9); Hematocrit 44.3 % (39.6-49.0); Lymphocytes % 31.9 % (15.3-44.8); MCV 86.3 fL (80-100); MPV 7.3 fL (7.6-11.3); RBC Red Blood Cell Count 5.13 M/uL (4.33-5.43)
[2023-01-31 23:23] LABS: Protime INR 1.08
[2023-01-31 23:45] LABS: ALT/SGPT 29 U/L (16-61); AST/SGOT 15 U/L (15-37); Albumin 4.2 g/dL (3.4-5.0); Alkaline Phosphatase 104 U/L (45-117); BUN Blood Urea Nitrogen 14 mg/dL (7-18); Bicarbonate 28 mEq/L (21-32); Bilirubin Total 0.4 mg/dL (0.2-1.0); Glomerular Filtration Rate 103 ml/min (=/>90); Glucose Level 89 mg/dL (74-106); Magnesium 2.4 mg/dL (1.6-2.4); NT PRO-BNP 5 pg/mL (<125); Potassium 4.1 mEq/L (3.5-5.1); Protein, Total 7.9 g/dL (6.4-8.2); Sodium Level 140 mEq/L (136-145); Thyroid Stimulating Hormone 0.502 uIU/mL (0.358-3.740)
[2023-01-31 23:54] LABS: Bilirubin Direct < 0.1 mg/dL (0-0.2); Bilirubin Indirect, Calculated ND mg/dL (0.2-0.8); Troponin High Sensitivity < 3.0 pg/mL (<58.9)
--- NOTE | 2023-02-01 01:16 | EDPHYS ---
Physician Documentation [facility] Name: Terry Way Age: 22 yrs Sex: Male : 2000 Arrival Date: 01/31/2023 Time: 19:08 Bed 5 Private MD: ED Physician Marco Castro HPI: 02/01 01:15 This 22 yrs old Male presents to ER via Ambulatory with complaints of Chest Pain, sb4 Dizziness. 02:45 Patient states that he was at work at [employer] when he started to feel sb4 dizzy. He took his break and went to sit in his car. When he was sitting his car he said he felt a sharp pain in the middle of his chest and caused him to be short of breath. He reports a syncopal episode afterwards and decided to come to the ED for further evaluation. He has no complaints at this time. Historical: - Allergies: 01/31 19:15 Codeine; mb9 - PMHx: 19:15 GERD; mb9 - PSHx: 19:15 Appendectomy; Tonsillectomy; wrist; mb9 - Immunization history:: Adult Immunizations up to date. - Social history:: Smoking status: Reported history of juuling and/or vaping. ROS: 02/01 02:45 Constitutional: Negative for fever, chills, and weight loss, Eyes: Negative for injury, sb4 pain, redness, and discharge, ENT: Negative for injury, pain, and discharge, Abdomen/GI: Negative for abdominal pain, nausea, vomiting, diarrhea, and constipation, Back: Negative for injury and pain, Skin: Negative for injury, rash, and discoloration. Cardiovascular: Positive for chest pain. Respiratory: Positive for shortness of breath. Neuro: Positive for dizziness. All other systems are negative. Exam: 02:45 Constitutional: This is a well developed, well nourished patient who is awake, alert, sb4 and in no acute distress. Head/Face: Normocephalic, atraumatic. Eyes: Extra-ocular motions intact. Periorbital areas with no swelling, redness, or edema. Cardiovascular: Regular rate and rhythm with a normal S1 and S2. Respiratory: Lungs have equal breath sounds bilaterally, clear to auscultation and percussion. No rales, rhonchi or wheezes noted. No increased work of breathing, no retractions or nasal flaring. Abdomen/GI: Soft, non-tender, no distension. Skin: Warm, dry with normal turgor. Normal color with no rashes, no lesions, and no evidence of cellulitis. MS/ Extremity: Pulses equal, no cyanosis. Neurovascular intact. Full, normal range of motion. Neuro: Awake and alert, GCS 15, oriented to person, place, time, and situation. Cranial nerves II-XII grossly intact. Motor strength 5/5 in all extremities. Sensory grossly intact. Cerebellar exam normal. Normal gait. Vital Signs: 01/31 19:13 BP 142 / 90; Pulse 86; Resp 18; Temp 97.7; Pulse Ox 99% on R/A; Weight 90.72 kg; Height mb9 5 ft. 10 in. ; Pain 10/07; 02/01 00:56 BP 105 / 58 Supine; Pulse 67; Resp 16; Pulse Ox 100% on R/A; rv 01:00 BP 114 / 65 Sitting; Pulse 85; Resp 17; Pulse Ox 99% on R/A; rv 01:03 BP 109 / 56 Standing; Pulse 84; Resp 18; Pulse Ox 98% on R/A; rv 01/31 19:13 Body Mass Index 28.70 (90.72 kg, 177.8 cm) mb9 01/31 19:13 Pain Scale: Adult mb9 MDM: 01/31 19:17 Patient medically screened. sb4 02/01 02:47 Differential diagnosis: viral Infection, bacterial infection, URI, bronchitis, sb4 pneumonia PE, muscle spasm, hypothyroidism. Data reviewed: vital signs, nurses notes, lab test result(s), radiologic studies, and as a result, I will discharge patient. Counseling: I had a detailed discussion with the patient and/or guardian regarding: the historical points, exam findings, and any diagnostic results supporting the discharge/admit diagnosis, lab results, radiology results, to return to the emergency department if symptoms worsen or persist or if there are any questions or concerns that arise at home. Special discussion: Based on the patient's history, exam, and Dx evaluation, there is no indication for emergent intervention or inpatient Tx. It is understood by the patient/guardian that if the Sx's persist or worsen they need to return immediately for re-evaluation. 01/31 19:18 Order name: Basic Metabolic Panel; Complete Time: 23:57 sb4 01/31 19:18 Order name: CBC with Diff; Complete Time: 23:22 sb4 01/31 19:18 Order name: D-Dimer; Complete Time: 23:27 sb4 01/31 19:18 Order name: LFT's; Complete Time: 23:57 sb4 01/31 19:18 Order name: Magnesium; Complete Time: 23:57 sb4 01/31 19:18 Order name: NT PRO-BNP; Complete Time: 23:57 sb4 01/31 19:18 Order name: PT-INR; Complete Time: 23:27 sb4 01/31 19:18 Order name: Troponin HS; Complete Time: 23:57 sb4 01/31 19:18 Order name: TSH; Complete Time: 23:57 sb4 01/31 19:18 Order name: XRAY Chest (1 view); Complete Time: 20:25 sb4 01/31 19:18 Order name: EKG; Complete Time: 19:18 sb4 01/31 19:18 Order name: Cardiac monitoring; Complete Time: 01:03 sb4 01/31 19:18 Order name: EKG - Nurse/Tech; Complete Time: 23:05 sb4 01/31 19:18 Order name: IV Saline Lock; Complete Time: 23:12 sb4 01/31 19:18 Order name: Labs collected and sent; Complete Time: 23:12 sb4 01/31 19:18 Order name: O2 Per Protocol; Complete Time: 23:05 sb4 01/31 19:18 Order name: O2 Sat Monitoring; Complete Time: 23:05 sb4 01/31 19:21 Order name: Orthostatics; Complete Time: 01:01 sb4 EC/04 22:41 Rate is 88 beats/min. Rhythm is regular, Sinus arrythmia. VT interval is normal at 148 sb4 msec. QRS interval is normal at 92 msec. QT interval is normal at [address] changes noted. Clinical impression: Normal ECG. Interpreted by me. Reviewed by me. Administered Medications: No medications were administered Disposition Summary: 02/01/23 01:15 Discharge Ordered Location: Home sb4 Problem: new sb4 Symptoms: are resolved sb4 Condition: Stable sb4 Diagnosis - Chest pain, unspecified sb4 Followup: sb4 - With: Emergency Department - When: As needed - Reason: Fever > 102 F, Trouble breathing, Worsening of condition Discharge Instructions: - Discharge Summary Sheet sb4 - Nonspecific Chest Pain, Adult, [id number] sb4 Forms: - Medication Reconciliation Form sb4 - Thank You Letter sb4 - Antibiotic Education sb4 - Prescription Opioid Use sb4 - Patient Portal Instructions sb4 - Work release form pf1 Signatures: Dispatcher [employer] EDAdri Henry PA-C PA-C sb4 Gina Yoder RN RN mb9
--- NOTE | 2023-02-01 01:16 | ER ---
Nurse's Notes [facility] Name: Terry Way Age: 22 yrs Sex: Male : 2000 Arrival Date: 01/31/2023 Time: 19:08 Bed 5 Private MD: Diagnosis: Chest pain, unspecified Presentation: 01/31 19:13 Chief complaint: Patient states: "I started feeling dizzy at work so I went to sit in [facility] my car. I hadd this sharp, stabbing pain in the center of my chest and passed out in the car. I felt nauseous and SOB and decided to come here". Coronavirus screen: Vaccine status: Patient reports being unvaccinated. Ebola Screen: No symptoms or risks identified at this time. Initial Sepsis Screen: Does the patient meet any 2 criteria? No. Patient's initial sepsis screen is negative. Does the patient have a suspected source of infection? No. Patient's initial sepsis screen is negative. Risk Assessment: Do you want to hurt yourself or someone else? Patient reports no desire to harm self or others. Onset of symptoms was January 31, 2023. 19:13 Method Of Arrival: Ambulatory [facility] 19:13 Acuity: INOCENTE 3 mb9 Triage Assessment: 19:15 General: Appears in no apparent distress. Behavior is calm, cooperative. Pain: mb9 Complains of pain in chest Pain does not radiate. Quality of pain is described as sharp, stabbing, Pain began suddenly, Is continuous. Neuro: Dinh Agitation-Sedation Scale (RASS): 0 - Alert and Calm Level of Consciousness is awake, alert, obeys commands, Oriented to person, place, time, situation, Appropriate for age. Cardiovascular: Reports chest pain, lightheadedness, shortness of breath. Respiratory: Airway is patent Respiratory effort is even, unlabored, Respiratory pattern is regular, symmetrical. GI: Reports nausea. : No signs and/or symptoms were reported regarding the genitourinary system. Derm: Skin is pink, warm \\T\\ dry. Musculoskeletal: Range of motion: intact in all extremities. Historical: - Allergies: 19:15 Codeine; mb9 - PMHx: 19:15 GERD; mb9 - PSHx: 19:15 Appendectomy; Tonsillectomy; wrist; mb9 - Immunization history:: Adult Immunizations up to date. - Social history:: Smoking status: Reported history of juuling and/or vaping. Screenin/05 00:59 [facility] ED Fall Risk Assessment (Adult) History of falling in the last 3 months, rv including since admission No falls in past 3 months (0 pts) Confusion or Disorientation No (0 pts) Intoxicated or Sedated No (0 pts) Impaired Gait No (0 pts) Mobility Assist Device Used No (0 pt) Altered Elimination No (0 pt) Score/Fall Risk Level 0 - 2 = Low Risk Oriented to surroundings, Maintained a safe environment, Educated pt \\T\\ family on fall prevention, incl call for assistance when getting out of bed, Assessed \\T\\ reinforced patient's understanding of fall precautions, Provided non-skid footwear, Hourly rounding (assess needs \\T\\ fall precautionary measures) done, Used ambulatory aids as needed (educated on \\T\\ assisted with), Used gait belt as appropriate. Abuse screen: Denies threats or abuse. Denies injuries from another. Nutritional screening: No deficits noted. Tuberculosis screening: No symptoms or risk factors identified. Assessment: 01/31 23:12 Reassessment: Patient and/or family updated on plan of care and expected duration. Pain mb9 level reassessed. Patient is alert, oriented x 3, equal unlabored respirations, skin warm/dry/pink. Patient states feeling better. Patient states symptoms have improved. 02/01 01:24 Reassessment: Patient appears in no apparent distress at this time. Patient and/or jb4 family updated on plan of care and expected duration. Pain level reassessed. Patient is alert, oriented x 3, equal unlabored respirations, skin warm/dry/pink. Vital Signs: 01/31 19:13 BP 142 / 90; Pulse 86; Resp 18; Temp 97.7; Pulse Ox 99% on R/A; Weight 90.72 kg; Height mb9 5 ft. 10 in. ; Pain 10; 02/01 00:56 BP 105 / 58 Supine; Pulse 67; Resp 16; Pulse Ox 100% on R/A; rv 01:00 BP 114 / 65 Sitting; Pulse 85; Resp 17; Pulse Ox 99% on R/A; rv 01:03 BP 109 / 56 Standing; Pulse 84; Resp 18; Pulse Ox 98% on R/A; rv 01/31 19:13 Body Mass Index 28.70 (90.72 kg, 177.8 cm) mb9 01/31 19:13 Pain Scale: Adult mb9 ED Course: 01/31 19:13 Patient arrived in ED. mg5 19:13 Arm band placed on. mb9 19:15 Triage completed. mb9 19:17 Adri Wynn [facility]-C [facility] sb4 19:17 Marco Castro MD is Attending Physician. sb4 19:56 XRAY Chest (1 view) In Process Unspecified. EDMS 23:12 Basic Metabolic Panel Sent. mb9 23:12 CBC with Diff Sent. mb9 23:12 D-Dimer Sent. mb9 23:12 LFT's Sent. mb9 23:12 Magnesium Sent. mb9 23:12 NT PRO-BNP Sent. mb9 23:12 PT-INR Sent. mb9 23:12 Troponin HS Sent. mb9 23:12 Inserted saline lock: 20 gauge in right antecubital area, using aseptic technique. mb9 02/01 00:56 Lan Jha, RN is Primary Nurse. rv 00:59 Patient has correct armband on for positive identification. Bed in low position. Call rv light in reach. Side rails up X 1. Client placed on continuous cardiac and pulse oximetry monitoring. NIBP monitoring applied. creative arts therapist on. 00:59 No provider procedures requiring assistance completed. rv 01:24 IV discontinued, intact, bleeding controlled, No redness/swelling at site. Pressure jb4 dressing applied. Administered Medications: No medications were administered Medication: 01:00 VIS not applicable for this client. rv Outcome: 01:15 Discharge ordered by . sb4 01:24 Discharged to home ambulatory. jb4 01:24 Condition: stable 01:24 Discharge instructions given to patient, Instructed on discharge instructions, follow up and referral plans. Demonstrated understanding of instructions, follow-up care. 01:24 Patient left the ED. jb4 Signatures: Dispatcher [employer] Frank Medley, RN Lan Iqbal, RN RN rv Adri Wynn PA-C PA-C sb4 Breneman, Mary Beth, RN RN mbMary Still mg5
[2023-02-01 02:21] VITALS: TEMP 97.7
[2023-02-01 02:26] VITALS: BP 109/56; O2SAT 98
--- NOTE | 2023-02-03 13:08 | EKG ---
Test Date: 2023-01-31 Test Time: 19:19:26 [place]: MB MEASUREMENT RESULTS: Intervals: Rate: 88 [place]: 148 QRSD: 92 QT: 348 QTc: 421 [place]: P: 67 [place]: 148 QRS: 101 T: 12 INTERPRETIVE STATEMENTS: Normal sinus rhythm with sinus arrhythmia Rightward axis Borderline ECG Compared to ECG 10/09/2022 12:13:45 Right-axis deviation now present Electronically Signed On 02-03-23 13:05:39 CDT by Christopher Rosas
== END 2023-02-01 01:24 | disposition home or self-care (01) ==
LOC: ER 19:08
DX: R07.9 Chest pain, unspecified (principal); R42 Dizziness and giddiness
CPT/HCPCS: 36415; 71045; 80048; 80076; 83735; 83880; 84443; 84484; 85025; 85379; 85610; 93005; 99284

== ENCOUNTER 2023-10-20 17:33 | Emergency (ER) | payer SELFPAY ==
[2023-10-20 18:11] LABS: SARS-CoV-2 Antigen CONTROL BLUE LINE VIS/BG OK; SARS-CoV-2 Antigen Rapid Res Negative (Negative)
--- NOTE | 2023-10-20 18:16 | RAD REPORT ---
EXAM DESCRIPTION: RAD - Chest Single View - 10/20/2023 6:09 pm CLINICAL HISTORY: COUGH Chest pain. COMPARISON: Chest Single View dated 01/31/2023 FINDINGS: Portable technique limits examination quality. The lungs are grossly clear. The heart is normal in size. No displaced fractures. IMPRESSION: No acute intrathoracic process suspected.
--- NOTE | 2023-10-20 18:50 | ER ---
Nurse's Notes [facility] Name: Terry Way Age: 23 yrs Sex: Male : 2000 Arrival Date: 10/20/2023 Time: 17:33 Bed IW2 Private MD: Diagnosis: Acute upper respiratory infection, unspecified Presentation: 10/19 17:38 Chief complaint: Patient states: couple of days of coughing, sore throat, headache and ko1 nasal congestion, not sure of fever. Coronavirus screen: At this time, the client does not indicate any symptoms associated with coronavirus-19. Ebola Screen: No symptoms or risks identified at this time. Initial Sepsis Screen: Does the patient meet any 2 criteria? No. Patient's initial sepsis screen is negative. Does the patient have a suspected source of infection? No. Patient's initial sepsis screen is negative. Risk Assessment: Do you want to hurt yourself or someone else? Patient reports no desire to harm self or others. Onset of symptoms is unknown. 17:38 Method Of Arrival: Ambulatory ko1 17:38 Acuity: INOCENTE 5 ko1 Triage Assessment: 17:44 General: Appears in no apparent distress. Behavior is calm, cooperative, appropriate ko1 for age. Pain: Complains of pain in headache. Historical: - Allergies: 17:44 Codeine; ko1 - Home Meds: 17:44 Pepcid 20 mg Oral tab 1 tab 2 times per day [Active]; ko1 - PMHx: 17:44 GERD; ko1 - PSHx: 17:44 Appendectomy; wrist; Tonsillectomy; ko1 - Immunization history:: Adult Immunizations up to date, . - Infectious Disease History:: Denies. - Social history:: Smoking status: Patient reports the use of cigarette tobacco products, denies chronic smoking, but will smoke occasionally, Reported history of juuling and/or vaping. Screenin:53 [facility] ED Fall Risk Assessment (Adult) History of falling in the last 3 months, ko1 including since admission No falls in past 3 months (0 pts) Confusion or Disorientation No (0 pts) Intoxicated or Sedated No (0 pts) Impaired Gait No (0 pts) Mobility Assist Device Used No (0 pt) Altered Elimination No (0 pt) Score/Fall Risk Level 0 - 2 = Low Risk Oriented to surroundings, Maintained a safe environment, Educated pt \T\ family on fall prevention, incl call for assistance when getting out of bed, Assessed \T\ reinforced patient's understanding of fall precautions, Provided non-skid footwear, Hourly rounding (assess needs \T\ fall precautionary measures) done, Used ambulatory aids as needed (educated on \T\ assisted with), Used gait belt as appropriate. Abuse screen: Denies threats or abuse. Denies injuries from another. Nutritional screening: No deficits noted. Tuberculosis screening: No symptoms or risk factors identified. Assessment: 17:53 Neuro: Reports headache in entire. Respiratory: Reports cough that is productive. EENT: ko1 Reports nasal congestion nasal discharge. Vital Signs: 17:38 BP 124 / 72; Pulse 91; Resp 18; Temp 98.6; Pulse Ox 98% ; ko1 ED Course: 17:38 Patient arrived in ED. 17:38 Karyn Cadena FNP is [facility] 17:38 Wallace Quintero MD is Attending Physician. [facility] 17:44 Triage completed. ko1 17:44 Arm band placed on right wrist. Patient placed in an exam room, on a stretcher, Patient ko1 notified of wait time. 17:48 Flu Sent. ko1 17:48 SARS RAPID Sent. ko1 17:53 Patient has correct armband on for positive identification. Allergy band placed. ko1 Provided Education on: labs. 17:53 No provider procedures requiring assistance completed. COVID swab sent to lab. Flu ko1 and/or RSV swab sent to lab. Patient did not have IV access during this emergency room visit. 18:11 XRAY Chest (1 view) In Process Unspecified. EDMS Administered Medications: No medications were administered Medication: 17:53 VIS not applicable for this client. ko1 Outcome: 18:50 Discharge ordered by . 7 18:57 Discharged to home ambulatory, as6 18:57 Condition: stable 18:57 Discharge instructions given to patient, Instructed on discharge instructions, follow up and referral plans. medication usage, Demonstrated understanding of instructions, follow-up care, medications, Prescriptions given X 2, 18:57 Patient left the ED. as6 Signatures: Dispatcher [facility] Elkin Barroso RN RN as6 Karyn Cadena FNP FNP 7 Sari Johnson RN RN ko1 Kay Carbone im
--- NOTE | 2023-10-20 18:50 | EDPHYS ---
Physician Documentation [facility] Name: Terry Way Age: 23 yrs Sex: Male : 2000 Arrival Date: 10/20/2023 Time: 17:33 Bed IW2 Private MD: ED Physician Wallace Quintero HPI: 10/19 17:38 This 23 yrs old Male presents to ER via Unassigned with complaints of Flu Symptoms. 7 17:38 23-year-old male with no significant past medical history presents to the ER for cough, jh7 sore throat, chills, headache, and bodyaches for the past 2 days. He reports that his cough is productive. Reports that he both vapes and smokes. Denies any fever, chest pain, or wheezing. Past surgical history includes appendectomy and tonsillectomy.. Historical: - Allergies: 17:44 Codeine; ko1 - Home Meds: 17:44 Pepcid 20 mg Oral tab 1 tab 2 times per day [Active]; ko1 - PMHx: 17:44 GERD; ko1 - PSHx: 17:44 Appendectomy; wrist; Tonsillectomy; ko1 - Immunization history:: Adult Immunizations up to date, . - Infectious Disease History:: Denies. - Social history:: Smoking status: Patient reports the use of cigarette tobacco products, denies chronic smoking, but will smoke occasionally, Reported history of juuling and/or vaping. ROS: 17:38 Constitutional: Per HPI jh7 Exam: 17:38 Constitutional: This is a well developed, well nourished patient who is awake, alert, jh7 and in no acute distress. Head/Face: Normocephalic, atraumatic. 17:38 Neck: Trachea midline, no thyromegaly or masses palpated, and no cervical lymphadenopathy. Supple, full range of motion without nuchal rigidity, or vertebral point tenderness. No Meningismus. Cardiovascular: Regular rate and rhythm with a normal S1 and S2. No gallops, murmurs, or rubs. Normal PMI, no JVD. No pulse deficits. Abdomen/GI: Soft, non-tender, with normal bowel sounds. No distension or tympany. No guarding or rebound. No evidence of tenderness throughout. Back: No spinal tenderness. No costovertebral tenderness. Full range of motion. Skin: Warm, dry with normal turgor. Normal color with no rashes, no lesions, and no evidence of cellulitis. MS/ Extremity: Pulses equal, no cyanosis. Neurovascular intact. Full, normal range of motion. Neuro: Awake and alert, GCS 15, oriented to person, place, time, and situation. Motor strength 5/5 in all extremities. Sensory grossly intact. Normal gait. 17:38 ENT: Posterior pharynx: pooling of secretions, that are mild, 17:38 Respiratory: the patient does not display signs of respiratory distress, Respirations: normal, Breath sounds: are clear throughout, Respiratory rate: 18 coughing noted on exam, Vital Signs: 17:38 BP 124 / 72; Pulse 91; Resp 18; Temp 98.6; Pulse Ox 98% ; ko1 MDM: 17:38 Patient medically screened. [facility] 18:52 Differential diagnosis: viral Infection, URI, bronchitis, pneumonia. Data reviewed: [facility] vital signs, nurses notes, lab test result(s), radiologic studies, plain films. I considered the following discharge prescriptions or medication management in the emergency department Medications were administered in the Emergency Department. See MAR. Independent interpretation of the following test(s) in the Emergency Department X-Ray: My interpretation is no acute findings. Counseling: I had a detailed discussion with the patient and/or guardian regarding the historical points, exam findings, and any diagnostic results supporting the discharge/admit diagnosis, to return to the emergency department if symptoms worsen or persist or if there are any questions or concerns that arise at home. 10/19 17:43 Order name: SARS RAPID; Complete Time: 18:18 [facility] 10/19 17:43 Order name: Flu; Complete Time: 18:48 [facility] 10/19 17:43 Order name: XRAY Chest (1 view); Complete Time: 18:18 [facility] Administered Medications: No medications were administered Disposition: 10/20 09:00 Co-signature as Attending Physician, Wallace Quintero MD I reviewed the patient's care rn provided by the Advanced Practice Provider and agree with the diagnosis and treatment plan. Disposition Summary: 10/20/23 18:50 Discharge Ordered Notes: Location: Home [facility] Problem: new [facility] Symptoms: are unchanged [facility] Condition: Stable [facility] Diagnosis - Acute upper respiratory infection, unspecified [facility] Followup: [facility] - With: Private Physician - When: 2 - 3 days - Reason: Recheck today's complaints Discharge Instructions: - Discharge Summary Sheet jh7 - Upper Respiratory Infection, Pediatric jh7 - Viral Respiratory Infection [facility] Forms: - Work release form as6 - Medication Reconciliation Form jh7 - Antibiotic Education jh7 - Patient Portal Instructions 7 - Leadership Thank You Letter [facility] Prescriptions: - Bromfed DM 2-30-10 mg/5 mL Oral syrup - administer 10 milliliter ORAL route every 6 hours As needed; 240 milliliter; [facility] Refills: 0, Product Selection Permitted - albuterol sulfate 90 mcg/actuation Inhalation HFA Aerosol Inhaler - inhale 1 puff INHALATION route every 4 to 6 hours As needed; 1 Each; Refills: [facility] 0, Product Selection Permitted Signatures: Dispatcher [employer] Wallace Parikh MD MD rn Karyn Cadena, KINESIOLOGIST KINESIOLOGIST [facility] Sari Johnson, RN RN ko1
[2023-10-20 19:25] VITALS: BP 124/72; TEMP 98.6; O2SAT 98
== END 2023-10-20 18:57 | disposition home or self-care (01) ==
LOC: ER 17:33
DX: J06.9 Acute upper respiratory infection, unspecified (principal); Z11.52 Encounter for screening for COVID-19; Z88.5 Allergy status to narcotic agent
CPT/HCPCS: 36415; 71045; 87804; 87811; 99283

== ENCOUNTER 2024-10-09 16:21 | Emergency (ER) | payer SELFPAY ==
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
[2024-10-09 17:02] LABS: Influenza A Ag Negative; Influenza B Ag Negative; SARS-CoV-2 Antigen Rapid Res Negative (Negative)
--- NOTE | 2024-10-09 17:21 | ER ---
Nurse's Notes [facility] Name: Terry Way Age: 23 yrs Sex: Male : 2000 Arrival Date: 10/09/2024 Time: 16:21 Bed IW1 Private MD: Diagnosis: Diarrhea, unspecified Presentation: 10/09 16:35 Chief complaint: Patient states: Fever, diarrhea, body aches, fatigue, and abdominal cm10 pain X3 days. TMAX 103. Coronavirus screen: Client denies travel out of the [place] in the last 14 days. Ebola Screen: Patient denies travel to an Ebola-affected area in the 21 days before illness onset. Initial Sepsis Screen: Does the patient meet any 2 criteria? No. Patient's initial sepsis screen is negative. Does the patient have a suspected source of infection? No. Patient's initial sepsis screen is negative. Risk Assessment: Do you want to hurt yourself or someone else? Patient reports no desire to harm self or others. Onset of symptoms was October 09, 2024. 16:35 Method Of Arrival: Ambulatory cm10 16:35 Acuity: INOCENTE 4 cm10 Triage Assessment: 16:36 General: Appears in no apparent distress. comfortable, Behavior is calm, cooperative. cm10 Neuro: No deficits noted. Level of Consciousness is awake, alert, obeys commands, Oriented to person, place, time, situation, Appropriate for age. Respiratory: No deficits noted. Airway is patent Respiratory effort is even, unlabored, Respiratory pattern is regular, symmetrical. 17:42 Pain: Complains of pain in abdomen. cm10 Historical: - Allergies: 16:36 Codeine; cm10 - PMHx: 16:36 GERD; cm10 - PSHx: 16:36 Appendectomy; Tonsillectomy; wrist; cm10 - Immunization history:: Adult Immunizations up to date. - Infectious Disease History:: Denies. - Social history:: Smoking status: Reported history of juuling and/or vaping. Screenin:41 [facility] ED Fall Risk Assessment (Adult) History of falling in the last 3 months, cm10 including since admission No falls in past 3 months (0 pts) Confusion or Disorientation No (0 pts) Intoxicated or Sedated No (0 pts) Impaired Gait No (0 pts) Mobility Assist Device Used No (0 pt) Altered Elimination No (0 pt) Score/Fall Risk Level 0 - 2 = Low Risk Oriented to surroundings, Maintained a safe environment, Hourly rounding (assess needs \T\ fall precautionary measures) done. Abuse screen: Denies threats or abuse. Denies injuries from another. Nutritional screening: No deficits noted. Tuberculosis screening: No symptoms or risk factors identified. Assessment: 17:42 Reassessment: Patient appears in no apparent distress at this time. Patient and/or cm10 family updated on plan of care and expected duration. Pain level reassessed. Patient is alert, oriented x 3, equal unlabored respirations, skin warm/dry/pink. Vital Signs: 16:35 BP 119 / 76; Pulse 69; Resp 19; Temp 98.9; Pulse Ox 100% on R/A; Weight 99.79 kg; cm10 Height 6 ft. 0 in. ; Pain 4/10; 16:35 Body Mass Index 29.84 (99.79 kg, 182.88 cm) cm10 16:35 Pain Scale: Adult cm10 ED Course: 16:25 Patient arrived in ED. im 16:36 Triage completed. cm10 16:36 Arm band placed on right wrist. Patient placed in waiting room. cm10 16:37 Group A Streptococcus Rapid Sent. cm10 16:37 COVID-19 Ag + Flu A+B Ag Sent. cm10 16:37 COVID swab sent to lab. Strep swab sent to lab. cm10 16:42 Hammad Ward PA is PHCP. cp 16:43 Kennedy Stone MD is Attending Physician. cp 17:41 Maryann Conway, CHRIS is Primary Nurse. cm10 17:42 Patient has correct armband on for positive identification. Provided Education on: cm10 follow-up instructions. 17:42 No provider procedures requiring assistance completed. Patient did not have IV access cm10 during this emergency room visit. Administered Medications: No medications were administered Medication: 17:41 VIS not applicable for this client. cm10 Outcome: 17:21 Discharge ordered by . cp 17:42 Discharged to home ambulatory, cm10 17:42 Condition: good 17:42 Discharge instructions given to patient, Instructed on discharge instructions, follow up and referral plans. Demonstrated understanding of instructions, follow-up care, 17:43 Patient left the ED. cm10 Signatures: Page, Hammad, Kay Foster cp, Maryann, RN RN cm10
--- NOTE | 2024-10-09 17:21 | EDPHYS ---
Physician Documentation [facility] Name: Terry Way Age: 23 yrs Sex: Male : 2000 Arrival Date: 10/09/2024 Time: 16:21 Bed IW1 Private MD: ED Physician Kennedy Stone HPI: 10/09 17:00 This 23 yrs old Male presents to ER via Ambulatory with complaints of Flu Symptoms. cp 17:00 Associated signs and symptoms: Pertinent positives: abdominal pain, diarrhea, fever, cp slight cough, body aches, Pertinent negatives: constipation, vomiting. 17:00 Onset: The symptoms/episode began/occurred 3 day(s) ago. cp Historical: - Allergies: 16:36 Codeine; cm10 - PMHx: 16:36 GERD; cm10 - PSHx: 16:36 Appendectomy; Tonsillectomy; wrist; cm10 - Immunization history:: Adult Immunizations up to date. - Infectious Disease History:: Denies. - Social history:: Smoking status: Reported history of juuling and/or vaping. ROS: 17:05 Constitutional: Positive for body aches, fever, Negative for poor PO intake, cp 17:05 Eyes: Negative for injury, pain, redness, and discharge, cp 17:05 ENT: Negative for drainage from ear(s), difficulty swallowing, difficulty handling secretions, 17:05 Cardiovascular: Negative for chest pain, 17:05 Respiratory: Positive for slight cough, Negative for shortness of breath, wheezing, 17:05 Abdomen/GI: Positive for abdominal pain, diarrhea, Negative for vomiting, constipation, 17:05 Neuro: Negative for altered mental status, dizziness, headache, 17:05 All other systems are negative, Exam: 17:10 Constitutional: The patient appears in no acute distress, alert, awake, non-toxic, well cp developed, well nourished, 17:10 Head/Face: Normocephalic, atraumatic. cp 17:10 Eyes: Periorbital structures: appear normal, Conjunctiva: normal, no exudate, no injection, Sclera: no appreciated abnormality, Lids and lashes: appear normal, bilaterally, 17:10 ENT: External ear(s): are unremarkable, Ear canal(s): are normal, clear, TM's: dullness, bilaterally, Nose: is normal, Mouth: Lips: moist, Oral mucosa: moist, Posterior pharynx: Airway: no evidence of obstruction, patent, erythema, that is mild, exudate, is not appreciated, 17:10 Neck: ROM/movement: is normal, is supple, no meningismus, no nuchal rigidity, 17:10 Chest/axilla: Inspection: normal, 17:10 Cardiovascular: Rate: normal, 17:10 Respiratory: the patient does not display signs of respiratory distress, Respirations: normal, no use of accessory muscles, no retractions, labored breathing, is not present, Breath sounds: are clear throughout, no decreased breath sounds, no stridor, no wheezing, 17:10 Abdomen/GI: Inspection: abdomen appears normal, Palpation: abdomen is soft and non-tender, in all quadrants, Vital Signs: 16:35 BP 119 / 76; Pulse 69; Resp 19; Temp 98.9; Pulse Ox 100% on R/A; Weight 99.79 kg; cm10 Height 6 ft. 0 in. ; Pain 4/10; 16:35 Body Mass Index 29.84 (99.79 kg, 182.88 cm) cm10 16:35 Pain Scale: Adult cm10 MDM: 16:43 Medical Screening Exam initiated cp 17:00 Differential diagnosis: viral Infection, bacterial infection, URI, bronchitis, cp pneumonia gastroenteritis, meningitis. 17:20 Data reviewed: vital signs, nurses notes, lab test result(s), and as a result, I will cp discharge patient. 17:20 Counseling: I had a detailed discussion with the patient and/or guardian regarding the cp historical points, exam findings, and any diagnostic results supporting the discharge/admit diagnosis, lab results, to return to the emergency department if symptoms worsen or persist or if there are any questions or concerns that arise at home. 10/09 16:28 Order name: COVID-19 Ag + Flu A+B Ag [facility] 10/09 16:28 Order name: Group A Streptococcus Rapid [facility] 10/09 17:05 Order name: Throat Culture EDMS Administered Medications: No medications were administered Disposition: 20:19 Co-signature as Attending Physician, Kennedy Stone MD I reviewed the patient's care rt provided by the Advanced Practice Provider and agree with the diagnosis and treatment plan. Disposition Summary: 10/09/24 17:21 Discharge Ordered Notes: Location: Home cp Problem: new cp Symptoms: are unchanged cp Condition: Stable cp Diagnosis - Diarrhea, unspecified cp Followup: cp - With: Private Physician - When: 2 - 3 days - Reason: Worsening of condition Discharge Instructions: - Discharge Summary Sheet cp - Food Choices to Help Relieve Diarrhea, Adult cp - Diarrhea, Adult cp - Viral Illness, Adult cp Forms: - Medication Reconciliation Form cp - Antibiotic Education cp - Prescription Opioid Use cp - Patient Portal Instructions cp - Leadership Thank You Letter cp - Work release form hb Signatures: Dispatcher [employer] EDMS Hammad Ward PA PA cp Kennedy Stone MD MD rt Maryann Conway RN RN cm10 Corrections: (The following items were deleted from the chart) 10/10 16:19 10/09 17:00 Associated signs and symptoms: Pertinent positives: abdominal pain, cp diarrhea, fever, sore throat, slight cough, body aches, Pertinent negatives: constipation, cp
[2024-10-09 18:16] VITALS: BP 119/76; TEMP 98.9; O2SAT 100
== END 2024-10-09 17:43 | disposition home or self-care (01) ==
LOC: ER 16:21
DX: R19.7 Diarrhea, unspecified (principal); R05.9 Cough, unspecified; Z11.52 Encounter for screening for COVID-19
CPT/HCPCS: 36415; 87070; 87428; 99283

== ENCOUNTER 2025-02-03 14:03 | Emergency (ER) | payer SELFPAY ==
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
[2025-02-03] MEDS ORDERED: IBUPROFEN 200 MG TAB PO ONE (15:11)
[2025-02-03] MEDS ORDERED: IBUPROFEN 400 MG TAB ONE (15:12)
--- NOTE | 2025-02-03 15:28 | ER ---
Nurse's Notes [facility] Name: Terry Way Age: 24 yrs Sex: Male : 2000 Arrival Date: 02/03/2025 Time: 14:03 Bed 9 Private MD: Diagnosis: Fall (on) (from) other stairs and steps;Contusion of left elbow;Neuropraxia Left upper arm Presentation: 02/03 14:15 Chief complaint: Patient states: fell from about 5 feet in the air off a 6 foot ladder, me1 landing on concrete on his left side. c/o pain to left elbow and forearm. Pain 5/10. NO LOC. Coronavirus screen: Vaccine status: Patient reports being unvaccinated. Ebola Screen: No symptoms or risks identified at this time. Initial Sepsis Screen: Does the patient meet any 2 criteria? No. Patient's initial sepsis screen is negative. Does the patient have a suspected source of infection? No. Patient's initial sepsis screen is negative. Risk Assessment: Do you want to hurt yourself or someone else? Patient reports no desire to harm self or others. Onset of symptoms was February 03, 2025 at 13:30. 14:15 Method Of Arrival: Ambulatory [facility] 14:15 Acuity: INOCENTE 4 me1 Historical: - Allergies: 14:18 Codeine; me1 - PMHx: 14:18 GERD; me1 - PSHx: 14:18 Appendectomy; Tonsillectomy; wrist; me1 - Immunization history:: Adult Immunizations up to date. - Infectious Disease History:: Denies. - Social history:: Smoking status: Reported history of juuling and/or vaping. Assessment: 15:46 Reassessment: Patient is alert, oriented x 3, equal unlabored respirations, skin aa5 warm/dry/pink. Vital Signs: 14:15 BP 142 / 81; Pulse 78; Resp 17; Temp 98.3; Pulse Ox 100% ; Weight 86.18 kg; Height 6 me1 ft. 0 in. ; Pain 5/10; 14:15 Body Mass Index 25.77 (86.18 kg, 182.88 cm) or1 14:15 Pain Scale: Adult or1 ED Course: 14:04 Patient arrived in ED. mr 14:10 Brayan Bui NP is PHCP. cr8 14:10 Carlota Stewart MD is Attending Physician. cr8 14:14 Louann Marin, RN is Primary Nurse. kc6 14:18 Triage completed. me1 14:18 Arm band placed on Patient placed in waiting room. me1 14:57 Elbow Left 3 View XRAY In Process Unspecified. EDMS 15:26 Rohith Araiza MD is Referral Physician. cr8 15:46 No provider procedures requiring assistance completed. Patient did not have IV access aa5 during this emergency room visit. Administered Medications: 15:22 Drug: Ibuprofen PO 600 mg PO once Route: PO; aa5 15:46 Follow up: Response: No adverse reaction aa5 Outcome: 15:28 Discharge ordered by MD. cr8 15:46 Discharged to home ambulatory, aa5 15:46 Condition: stable 15:46 Discharge instructions given to patient, Instructed on discharge instructions, follow up and referral plans. Demonstrated understanding of instructions, follow-up care, 15:47 Patient left the ED. aa5 Signatures: Dispatcher [employer] EDTN Gina Combs, Reg Reg mr DexterAlondra, RN RN aa5 Louann Marin, RN RN kc6 Nikki Guzman RN RN me1 Brayan Bui NP FIBERGL[employer] CONTAINER WINDING OPERATOR cr8 Corrections: (The following items were deleted from the chart) 14:18 14:15 Acuity: INOCENTE 3 me1 me1
--- NOTE | 2025-02-03 15:28 | EDPHYS ---
Physician Documentation [facility] Name: Terry Way Age: 24 yrs Sex: Male : 2000 Arrival Date: 02/03/2025 Time: 14:03 Bed 9 Private MD: ED Physician Carlota Stewart HPI: 02/03 14:18 This 24 yrs old Male presents to ER via Ambulatory with complaints of Fall Injury, Fell cr8 off ladder 6ft. 14:18 Patient is a 24-year-old male with a history of appendectomy that comes to the [facility] emergency department complaining of left elbow pain after a fall. Reports he was about 4 foot up on a ladder and fell off onto his left elbow. No other injury. Vascular status is intact but reports he feels like his funny bone is continually going off. Range of motion is intact. Did not hit his head. No obvious deformity. Historical: - Allergies: 14:18 Codeine; me1 - PMHx: 14:18 GERD; me1 - PSHx: 14:18 Appendectomy; Tonsillectomy; wrist; me1 - Immunization history:: Adult Immunizations up to date. - Infectious Disease History:: Denies. - Social history:: Smoking status: Reported history of juuling and/or vaping. ROS: 14:18 Constitutional: as per [facility] cr8 Exam: 14:18 Constitutional: This is a well developed, well nourished patient who is awake, alert, cr8 and in no acute distress. Skin: Warm, dry with normal turgor. Normal color with no rashes, no lesions, and no evidence of cellulitis. MS/ Extremity: Pulses equal, no cyanosis. Full, normal range of motion. Vascular is intact. Distal pulses on the left arm are intact. Radial pulse 2+. Neuro: Awake and alert, GCS 15, oriented to person, place, time, and situation. Cranial nerves II-XII grossly intact. Motor strength 5/5 in all extremities. Sensory grossly intact. Vital Signs: 14:15 BP 142 / 81; Pulse 78; Resp 17; Temp 98.3; Pulse Ox 100% ; Weight 86.18 kg; Height 6 me1 ft. 0 in. ; Pain 5/10; 14:15 Body Mass Index 25.77 (86.18 kg, 182.88 cm) me1 14:15 Pain Scale: Adult me1 MDM: 14:21 Medical Screening Exam initiated cr8 15:23 Data reviewed: vital signs, nurses notes, radiologic studies. Independent cr8 interpretation of the following test(s) in the Emergency Department X-Ray: My interpretation is Left elbow x-ray shows no evidence of fracture dislocation or fat pad sign. ED course: Patient came in after a fall and injuring to the left elbow. Differential includes fracture dislocation sprain strain contusion. Also reports some numbness radiating from the elbow. Considered nerve injury vascular condition like ischemia. Went and order x-rays. Imaging was negative for fracture or dislocation. No fat pad sign on the examination. Considered vascular condition causing the numbness or tingling however on exam his distal pulses intact. The left radial pulses 2+ to the left lower hand is warm with good color and sensation so low suspicion of a vascular injury. The nerve is probably injured from the fall causing neuropraxia. Reexamination he states the tingling is improving and is not as bad as it when he came in. Will go ahead and treat him symptomatically and advised to follow-up if no improvement in his numbness or tingling in the next day or 2. No emergent condition identified at time of discharge.. 02/03 14:18 Order name: Elbow Left 3 View XRAY; Complete Time: 15:37 cr8 Administered Medications: 15:22 Drug: Ibuprofen PO 600 mg PO once Route: PO; aa5 15:46 Follow up: Response: No adverse reaction aa5 Disposition Summary: 02/03/25 15:28 Discharge Ordered Notes: Location: Home cr8 Condition: Stable cr8 Diagnosis - Fall (on) (from) other stairs and steps cr8 - Contusion of left elbow cr8 - Neuropraxia Left upper arm cr8 Followup: cr8 - With: Emergency Department - When: As needed - Reason: Worsening of condition Followup: cr8 - With: Private Physician - When: - Reason: If symptoms return, Continuance of care Followup: cr8 - With: Rohith Araiza MD - When: 2 - 3 days - Reason: If symptoms return, no improvement in symptoms Discharge Instructions: - Discharge Summary Sheet cr8 - Contusion cr8 - Neuropathic Pain cr8 Forms: - Medication Reconciliation Form cr8 - Antibiotic Education cr8 - Patient Portal Instructions cr8 - Leadership Thank You Letter cr8 Signatures: Alondra Patterson RN RN aa5 Nikki Guzman RN RN me1 Brayan Bui, [employer] OBSERVATORY DIRECTOR cr8
--- NOTE | 2025-02-03 15:30 | RAD REPORT ---
EXAMINATION: XR Elbow Left 3 View CLINICAL INDICATION: Male, 24 years old. PAIN TECHNIQUE: 3 view radiographs of the left elbow were obtained. COMPARISON: No prior exam. FINDINGS: No evidence of fracture or dislocation. Normal alignment. No joint effusion. No evidence of arthropathy. No suspicious focal bone lesion. Soft tissues are unremarkable. IMPRESSION: No acute or significant abnormalities.
[2025-02-03 16:03] VITALS: BP 142/81; TEMP 98.3; O2SAT 100
== END 2025-02-03 15:47 | disposition home or self-care (01) ==
LOC: ER 14:03
DX: S50.02XA Contusion of left elbow, initial encounter (principal); W11.XXXA Fall on and from ladder, initial encounter
CPT/HCPCS: 99283